=== PATIENT | female | born 1955 | race Caucasian/White ===

== ENCOUNTER 2023-02-07 02:42 | Outpatient (CLI) | payer MEDICARE, OTHER, SELFPAY | END 2023-02-07 02:43 | disposition home or self-care (01) | LOC: AMB 02-09 10:19 | PROVIDERS: PCP Internal Medicine; Visit Provider Emergency Medicine | DX: E11.65 Type 2 diabetes mellitus with hyperglycemia (principal) | CPT/HCPCS: A0425; A0426; A0428 ==

== ENCOUNTER 2023-06-22 09:57 | Outpatient (CLI) | payer MEDICARE, OTHER, SELFPAY | END 2023-06-22 09:58 | disposition home or self-care (01) | LOC: NFLDREF 09:58 | PROVIDERS: PCP Internal Medicine; Visit Provider Internal Medicine | DX: I10 Essential (primary) hypertension (principal); E04.1 Nontoxic single thyroid nodule | CPT/HCPCS: 80053 ==

== ENCOUNTER 2023-08-27 10:27 | Outpatient (CLI) | payer MEDICARE, OTHER, SELFPAY ==
--- NOTE | 2023-08-27 10:45 | CRLHL7_ITS ---
For Patients: As a result of the Century Cures Act, medical imaging exams and procedure reports are released immediately into your electronic medical record. You may view this report before your referring provider. If you have questions, please contact your health care provider. BILATERAL SCREENING MAMMOGRAM WITH COMPUTER-AIDED DETECTION AND TOMOSYNTHESIS TECHNIQUE: CC and MLO views were obtained. These mammographic images have been obtained using full-field digital technique. These mammographic images were interpreted with the benefit of computer-aided detection. Breast Tomosynthesis was used in this interpretation. COMPARISON FILM: 04/11/22. FINDINGS: There are scattered areas of fibroglandular density IMPRESSION: There is no radiographic evidence for malignancy. ASSESSMENT: BI-RADS Category 1: Negative RECOMMENDATION: Routine screening mammogram in 1 year. A lay language report of this examination will be provided to the patient. Andrea Mortensen M.D. Diagnostic Radiologist [email or web address] Transcribed: 5:48 p.[email or web address] fontana/Dictated by: Andrea Mortensen MD @ 08/30/2023 12:18:00 PM (Electronically Signed)
== END 2023-08-27 10:28 | disposition home or self-care (01) ==
LOC: MAMMO 10:28
PROVIDERS: PCP Internal Medicine; Visit Provider Internal Medicine
DX: Z12.31 Encounter for screening mammogram for malignant neoplasm of breast (principal)
CPT/HCPCS: 77063; 77067

== ENCOUNTER 2023-08-27 10:37 | Outpatient (CLI) | payer MEDICARE, OTHER, SELFPAY ==
--- NOTE | 2023-08-27 11:15 | CRLHL7_ITS ---
For Patients: As a result of the Century Cures Act, medical imaging exams and procedure reports are released immediately into your electronic medical record. You may view this report before your referring provider. If you have questions, please contact your health care provider. INDICATION: History of endometrial thickening COMPARISON: CT 02/06/2023 TECHNIQUE: 2D sin scale and color Doppler images were acquired of the pelvis using a transabdominal and transvaginal approach. FINDINGS: Sonographic images demonstrate a normal size and smooth outer contour of the uterus. Uterus measures 8.6 cm in length by 3.8 cm in AP diameter by 4.9 cm in transverse dimension. The myometrium has a heterogeneous echotexture. The endometrial lining appears normal and measures 4 mm in composite thickness. The ovaries are not visualized. There are no suspicious fluid collections within the cul-de-sac. IMPRESSION: Endometrial thickness 4 millimeters. No endometrial fluid. No uterine fibroid. Dictated by Andrea Mortensen MD @ 08/31/2023 6:23:41 AM (Electronically Signed)
== END 2023-08-27 10:38 | disposition home or self-care (01) ==
PROVIDERS: PCP Internal Medicine; Visit Provider Internal Medicine
DX: R93.89 Abnormal findings on diagnostic imaging of other specified body structures (principal)
CPT/HCPCS: 76830; 76856

== ENCOUNTER 2024-03-06 09:35 | Outpatient (CLI) | payer MEDICARE, OTHER, SELFPAY ==
--- OUTSIDE RECORDS SUMMARY | 2024-03-06 09:40 | XMS_ITS | Encounter Summary ---
Author Organization [facility] ([facility]) Address [address] [place] [address] Phone Care Team Providers Care Top Collar Maker Name Role Phone Rina Leblanc MD Primary Care Provider Felipe Nelson MD Unavailable [phone] Kayley Breaux DNP Unavailable [phone] Mariano Johansen MD Unavailable [phone] Beatriz Walker MD Unavailable [phone] Isaac Diehl MD Unavailable [phone] Shanell Palmer MD Unavailable [phone] Laine Daniels Unavailable Encounter Details Date Type Department Care Team (Late st Contact Info) Description 12/07/2016 Lab Requisition [facility] [address] [place] [address] Rina Leblanc MD [address] [place] [address] Hyperglycemia Social History Tobacco Use Types Packs/Day Years Used Date Smoking Tobacco: Former Smokeless Tobacco: Never Comments:uses nicotine gum Alcohol Use Standard Drinks/Week Comments Yes 0 (1 standard drink = 0.6 oz pure alcohol) 4 times per week (1 glass wine) Sex and Gender Information Value Date Recorded Sex Assigned at Not on file Gender Identity Not on file Sexual Orientation Not on file documented as of this encounter Functional Status Functional Status Response Date of Assess ment Is this person deaf or does he/she have serious difficulty hearing? No 09/24/2016 Is this person blind or does he/she have serious difficulty seeing even when wearing glasses? No 6 Does this person have seriou s difficulty walking or climbing stairs? No 09/24/2016 Does this person have difficulty dressing or bat [place]? No 09/24/2016 Because of a physical, menta l or emotional condition, does this person have difficulty doing errands alone such as visiting a doctor's office or shopping? No 09/24/2016 Cognitive Status Response Date of Assessm ent Because of a physical, menta l or emotional condition, does this person have serious difficulty concentrating, remembering, or making decisions? No 09/24/2016 documented as of this encounter Plan of Treatment Not on file documented as of this encounter Goals Goal Patient Goal Type Associated Problems Recent Progress Patient-Stated? 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) No Rina Leblanc MD documented as of this encounter Procedures Procedure Name Priority Date/Time Associated Diagnosis Comments KETONES, BLOOD TERRANCE 12/07/2016 10:29 AM CDT Hyperglycemia documented in this encounter Results * Ketones, blood (12/07/2016 10:29 AM CDT) Ketone Bodies, Serum <0.20 <=0.27 mmol/L 12/07/2016 11:51 AM CDT [facility] Blood specimen (specimen) 12/07/2016 10:29 AM CDT 12/07/2016 11:31 AM CDT Rina Leblanc MD LAB BLOOD ORDERABLES [facility] [address] [place] [address] documented in this encounter Visit Diagnoses Diagnosis Hyperglycemia Other abnormal glucose documented in this encounter Additional Health Concerns Infection Onset Date Last Indicated Resolved Time COVID-19 Pending 06/13/2020 06/14/2020 06/17/2020 8:01 AM CDT COVID-19 Pending 10/03/2020 10/03/202010/0410/04/2020 7:38 AM PARCEL POST CARRIER documented as of this encounter Care Teams Top Collar Maker Relationship Specialty Start Date End Date Rina Leblanc MD [address] [place] [address] PCP - General Internal Medicine 11/24/12 02/25/22 Felipe Nelson MD [address] [place] [address] Human Factors Specialist & Gynecology Obstetrics and Gynecology 09/10/17 11/10/20 Kayley Breaux ARNP, DNP [address] [facility] [address] [place] [address] Nurse Practitioner Nurse Practitioner wo Specialty 07/11/18 Mariano Johansen MD [address] [place] [address] Surgeon Orthopaedics 05/02/19 Beatriz Walker MD [address] [place] [address] Surgeon General Surgery 04/08/20 11/10/20 Isaac Diehl MD [address] [place] [address] Human Factors Specialist & Gynecology Obstetrics and Gynecology 11/11/20 11/16/21 Shanell Palmer MD [address] [place] [address] [address] [place] [address] Consulting Physician Gastroenterology 11/11/20 Laine Daniels ARNP [address] [facility] [address] [place] [address] Nurse Practitioner Gynecology 11/17/21 Dr Smith Optometry 10/28/18 Dr Boom Mccormack Dermatology 11/11/20 documented as of this encounter
--- OUTSIDE RECORDS SUMMARY | 2024-03-06 09:40 | XMS_ITS | Encounter Summary ---
Author Organization [facility] ([facility]) Address [address] [place] [address] Phone Care Team Providers Care Director Of Retail Name Role Phone Rina Leblanc MD Primary Care Provider Felipe Nelson MD Unavailable [phone] Kayley Breaux, [facility] Unavailable [phone] Mariano Johansen MD Unavailable [phone] Beatriz Walker MD Unavailable [phone] Isaac Diehl MD Unavailable [phone] Shanell Palmer MD Unavailable [phone] Laine Daniels Unavailable Reason for Visit * Reason Comments Other Encounter Details Date Type Department Care Team (Late st Contact Info) Description 09/11/2014 [facility]ill [facility] [address] [place] [address] Rina Leblanc MD [address] [place] [address] Type I (juvenile type) diabetes mellitus without mention of complication, not stated as uncontrolled (Primary Dx) Social History Tobacco Use Types Packs/Day Years Used Date Smoking Tobacco: Former Comments:uses nicotine gum Alcohol Use Standard Drinks/Week [...] does he/she have serious difficulty hearing? No 04/23/2014 Is this person blind or does he/she have serious difficulty seeing even when wearing glasses? No 4 Does this person have seriou s difficulty walking or climbing stairs? No 04/23/2014 Does this person have difficulty dressing or [place]? No 04/23/2014 Because of a physical, menta l or emotional condition, does this person have difficulty doing errands alone such as visiting a doctor's office or shopping? No 04/23/2014 documented as of this encounter Plan of Treatment Not on file documented as of this encounter Goals Goal Patient Goal Type Associated Problems Recent Progress Patient-Stated? 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 Rina Leblanc MD documented as of this encounter Visit Diagnoses Diagnosis Type I (juvenile type) diabetes mellitus without mention of complication, not stated as uncontrolled- Primary documented in this encounter Additional Health Concerns Infection Onset Date Last Indicated Resolved Time COVID-19 Pending 06/13/2020 06/14/2020 06/17/2020 8:01 AM CDT COVID-19 Pending 10/03/2020 10/03/2020 10/04/2020 7:38 AM GRAIN COMBINE DRIVER documented as of this encounter Care Teams Director Of Retail Relationship Specialty Start Date End Date Rina Leblanc MD [address] [place] [address] PCP - General Internal Medicine 11/24/12 02/25/22 Felipe Nelson MD [address] [place] [address] Counter Tacker & Gynecology Obstetrics and Gynecology 09/10/17 11/10/20 Kayley Breaux ARNP, FILOMENA [address] [facility] [address] [place] [address] Nurse Practitioner Nurse Practitioner wo Specialty 07/11/18 Mariano Johansen MD [address] [place] [address] Surgeon Orthopaedics 05/02/19 Beatriz Walker MD [address] [place] [address] Surgeon General Surgery 04/08/20 11/10/20 Isaac Diehl MD [address] [place] [address] Counter Tacker & Gynecology Obstetrics and Gynecology 11/11/20 11/16/21 Shanell Palmer MD [address] [place] [address] [address] [place] [address] Consulting Physician Gastroenterology 11/11/20 Laine Daniels, CONSULTING SYSTEMS ENGINEER [address] [facility] [address] [place] [address] Nurse Practitioner Gynecology 11/17/21 Dr Smith Optometry 10/28/18 Dr Boom Mccormack Dermatology 11/11/20 documented as of this encounter
--- OUTSIDE RECORDS SUMMARY | 2024-03-06 09:40 | XMS_ITS | Encounter Summary ---
Author Organization [facility] ([facility]) Address [address] [place] [address] Phone Care Team Providers Care Group Care Worker Name Role Phone Rina Leblanc MD Primary Care Provider [phone] Felipe Nelson MD Unavailable [phone] Kayley Breaux [facility] Unavailable [phone] Mariano Johansen MD Unavailable [phone] Beatriz Walker MD Unavailable [phone] Isaac Diehl MD Unavailable [phone] Shanell Palmer MD Unavailable [phone] Laine Daniels Unavailable Reason for Visit * Reason Comments Other Encounter Details Date Type Department Care Team (Late st Contact Info) Description 12/28/2017 Refill [facility] [address] [place] [address] Rina Leblanc MD [address] [place] [address] Benign essential HTN; Reactive depression (situational); Hyperlipidemia, unspecified hyperlipidemia type; Diabetes type 1, uncontrolled (HCC) Social History Tobacco Use Types Packs/Day Years Used Date Smoking Tobacco: Former Smokeless Tobacco: Never Comments:uses nicotine gum Alcohol Use Standard Drinks/Week Comments Yes 0 (1 standard drink = 0.6 oz pure alcohol) 2 beers 4 times per week on average Sex and Gender Information Value Date Recorded Sex Assigned at Not on file Gender Identity Not on file Sexual Orientation Not on file documented as of this encounter Functional Status Functional Status Response Date of Assess ment Is this person deaf or does he/she have serious difficulty hearing? No 12/23/2017 Is this person blind or does he/she have serious difficulty seeing even when wearing glasses? No 8 Does this person have seriou s difficulty walking or climbing stairs? No 12/23/2017 Does this person have difficulty dressing or bat [place]? No 12/23/2017 Because of a physical, menta l or emotional condition, does this person have difficulty doing errands alone such as visiting a doctor's office or shopping? No 12/23/2017 Cognitive Status Response Date of Assessm ent Because of a physical, menta l or emotional condition, does this person have serious difficulty concentrating, remembering, or making decisions? No 12/23/2017 documented as of this encounter Plan of Treatment Not on file documented as of this encounter Goals Goal Patient Goal Type Associated Problems Recent Progress Patient-Stated? 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 Rina Leblanc MD documented as of this encounter Visit Diagnoses Diagnosis Benign essential HTN Reactive depression (situational) Dysthymic disorder Hyperlipidemia, unspecified hyperlipidemia type Diabetes type 1, uncontrolled Type I (juvenile type) diabetes mellitus without mention of complication, uncontrolled documented in this encounter Additional Health Concerns Infection Onset Date Last Indicated Resolved Time COVID-19 Pending 06/13/2020 06/14/2020 06/17/2020 8:01 AM CDT COVID-19 Pending 10/03/2020 10/03/2020 10/04/2020 7:38 AM CAT DRIVER documented as of this encounter Care Teams Group Care Worker Relationship Specialty Start Date End Date Rina Leblacn MD [address] [place] [address] PCP - General Internal Medicine 11/24/12 02/25/22 Felipe Nelson MD [address] [place] [address] Management Engineer & Gynecology Obstetrics and Gynecology 09/10/17 11/10/20 Kayley Breaux ARNP, FILOMENA [address] [facility] [address] [place] [address] Nurse Practitioner Nurse Practitioner wo Specialty 07/11/18 Mariano Johansen MD [address] [place] [address] Surgeon Orthopaedics 05/02/19 Beatriz Walker MD [address] [place] [address] Surgeon General Surgery 04/08/20 11/10/20 Isaac Diehl MD [address] [place] [address] Management Engineer & Gynecology Obstetrics and Gynecology 11/11/20 11/16/21 Shanell Palmer MD [address] [place] [address] [address] [place] [address] Consulting Physician Gastroenterology 11/11/20 Laine Daniels ARNP [address] [place] [address] [address] [place] [address] Nurse Practitioner Gynecology 11/17/21 Dr Smith Optometry 10/28/18 Dr Boom Mccormack Dermatology 11/11/20 documented as of this encounter
--- OUTSIDE RECORDS SUMMARY | 2024-03-06 09:40 | XMS_ITS | Encounter Summary ---
Author Organization [facility] ([facility]) Address [address] [place] [address] Phone Care Team Providers Care Aircraft Fueler Name Role Phone Rina Leblanc MD Primary Care Provider Felipe Nelson MD Unavailable [phone] Kayley Breaux [facility] Unavailable [phone] Mariano Johansen MD Unavailable [phone] Beatriz Walker MD Unavailable [phone] Isaac Diehl MD Unavailable [phone] Shanell Palmer MD Unavailable [phone] Laine Daniels Unavailable Reason for Visit * Reason Comments Other Encounter Details Date Type Department Care Team (Late st Contact Info) Description 12/18/2016 Refill [facility] [address] [place], [place] [address] Rina Leblanc MD [address] [place] [address] Diabetes type 1, uncontrolled (HCC) Social History [...] activity Lifestyle On track( 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 Rina Leblanc MD documented as of this encounter Visit Diagnoses Diagnosis Diabetes type 1, uncontrolled Type I (juvenile type) diabetes mellitus without mention of complication, uncontrolled documented in this encounter Additional Health Concerns Infection Onset Date Last Indicated Resolved Time COVID-19 Pending 06/13/2020 06/14/2020 06/17/2020 8:01 AM CDT COVID-19 Pending 10/03/2020 10/03/2020 10/04/2020 7:38 AM CLOUD DEVELOPER documented as of this encounter Care Teams Aircraft Fueler Relationship Specialty Start Date End Date Rina Leblanc MD [address] [place] [address] PCP - General Internal Medicine 11/24/12 02/25/22 Felipe Nelson MD [address] [place] [address] Carbon Furnace Operator & Gynecology Obstetrics and Gynecology 09/10/17 11/10/20 Kayley Breaux ARNP, DNP [address] [facility] [address] [place] [address] Nurse Practitioner Nurse Practitioner wo Specialty 07/11/18 Mariano Johansen MD [address] [place] [address] Surgeon Orthopaedics 05/02/19 Beatriz Walker MD [address] [place] [address] Surgeon General Surgery 04/08/20 11/10/20 Isaac Diehl MD [address] [place] [address] Carbon Furnace Operator & Gynecology Obstetrics and Gynecology 11/11/20 11/16/21 Shanell Palmer MD [address] [place] [address] Consulting Physician Gastroenterology 11/11/20 Laine Daniels ARNP [address] [place] [address] Nurse Practitioner Gynecology 11/17/21 Dr Smith Optometry 10/28/18 Dr Boom Mccormack Dermatology 11/11/20 documented as of this encounter
--- OUTSIDE RECORDS SUMMARY | 2024-03-06 09:40 | XMS_ITS | Clinical Summary ---
Author Organization [facility] ([facility]) Address [address] [place] [address] Phone Care Team Providers Care Invas Tech Name Role Phone Kayley Breaux DNP Unavailable [phone] Mariano Johansen MD Unavailable [phone] Shanell Palmer MD Unavailable [phone] Laine Daniels Unavailable [phone] Allergies Active Allergy Reactions Criticality Noted Date Comments Penicillins Other (See Comments) 02/16/2013 Both sisters have anaphylatic reactions with PCN so was Never given it to see. Patient states has had Augmentin in the past Sulfa (Sulfonamide Antibiotics) Hives Medium 02/16/2013 Medications Medication Sig Dispensed Refills Start Date End Date Status GLUCAGON 1 mg injection USE DIRECTED IF BLOOD SUGAR SYMPTOMATICALLY TOO LOW. 1 each 3 10/26/19 14 Active desoximetasone (TOPICORT) 0.25 % cream Apply 1 application topically as needed. 0 Active LORazepam (ATIVAN) 0.5 MG tabletIndications: Anxiety Take 1-2 tablets (0.5-1 mg total) by mouth daily as needed. (prior to flight) 10 tablet 0 09/07/20 16 Active insulin glargine (LANTUS SOLOSTAR) 100 unit/mL (3 mL) InPnIndications:Un controlled type 1 diabetes mellitus without complication 20 units daily 15 mL 5 12/08/19 17 Active Additional Information Patient taking differently: (No instructions reported), Indications: only uses with pump failure - not daily, Reported on 01/13/2022 test strips (KETONE CARE) StrpIndications:Un controlled type 1 diabetes mellitus without complication Use as needed when BS elevated. 50 strip 2 12/08/19 Active ESTROGEN,CON/M-PRO GEST ACET (PREMPRO ORAL) Take 1 tablet by mouth every morning. 0.45-1.5 mg 0 Active INFUSION SET 43 9MM Infusion SetIndications:Unc ontrolled type 1 diabetes mellitus without complication 1 each by Miscellaneous route every other day. Auto soft 90 43 9 ml 45 each 3 02/17/20 Active T:SLIM CartridgeIndicatio ns:Uncontrolled type 1 diabetes mellitus without complication Inject 1 each under the skin every other day. 45 each 3 02/17/20 Active betamethasone dipropionate (DIPROLENE) 0.05 % ointment Apply topically as needed. 0 01/14/20 Active multivitamin capsule Take 1 capsule by mouth every morning. 0 Active calcium carbonate/vitamin D3 (CALCIUM 600 + D,3, ORAL) Take 1 capsule by mouth every morning. 0 Active nicotine polacrilex (NICORETTE) 4 MG gum Take 4 mg by mouth as needed for Smoking cessation ((uses 6 pieces per day on average)). 0 Active lancets (MICROLET LANCET) MiscIndications:Ty pe 1 diabetes mellitus without complication (HCC) MICROLET LANCETS. USE 4X DAILY. 400 each 3 09/13/20 Active aspirin 81 MG EC tablet Take 81 mg by mouth every morning. 0 Active simethicone (MYLICON) 125 MG chewable tabletIndications: Belching Take 1 tablet (125 mg total) by mouth every 6 (six) hours as needed. 30 tablet 0 11/17/19 Active valsartan (DIOVAN) 80 MG tabletIndications: Benign essential HTN TAKE 1 TABLET EVERY MORNING 90 tablet 1 01/29/20 Active FreeStyle Lite Test StripsIndications: Type 1 diabetes mellitus without complication (HCC) TEST 5 TIMES DAILY DIRECTED 450 strip 3 03/18/20 Active atorvastatin (LIPITOR) 20 MG tabletIndications: Hyperlipidemia, unspecified hyperlipidemia type TAKE 1 TABLET DAILY 90 tablet 1 03/19/20 Active NOVOLOG U-100 INSULIN ASPART 100 unit/mL vialIndications:Ty pe 1 diabetes mellitus without complication (HCC) INJECT 70 UNITS UNDER THE SKIN DAILY VIA PUMP 60 mL 1 05/14/20 22 Active buPROPion (WELLBUTRIN XL) 300 MG 24 hr tabletIndications: Recurrent major depressive disorder, in remission (HCC) TAKE 1 TABLET DAILY 90 tablet 1 06/22/20 22 Active sertraline (ZOLOFT) 50 MG tabletIndications: Reactive depression (situational) TAKE 1 TABLET DAILY 90 tablet 1 02/07/20 24 Active sertraline (ZOLOFT) 50 MG tabletIndications: Reactive depression (situational) TAKE 1 TABLET DAILY 90 tablet 1 11/02/19 23 024 Discontinued Active Problems Problem Noted Date Diagnosed Date Abdominal wall pain in left lower quadrant 11/14 Essential hypertension 11/11/2020 Gastroesophageal reflux dise ase, unspecified whether esophagitis present 11/11/2020 PMB (postmenopausal bleeding) 10/10/2020 Endometrial polyp 10/10/2020 Rectal polyp 06/21/2020 Status post left rotator cuff repair 07/10/2019 Other shoulder lesions, left shoulder 07/07/2019 Diabetes type 1, uncontrolled 12/19/2008 Recurrent major depressive disorder, in remissio n 12/19/2008 Mixed hyperlipidemia Encounters Date Type Department Care Team Description 02/07/2024 [place] [address] Rina Leblanc MD Reactive depression (situational) from Last 3 Months Immunizations Name Administration Dates Next Due Hepatitis A vaccine, adult 07/29/2005 Hepatitis B vaccine, adult 05/24/2006,02/11/2006 ,12/08/2005 Hepatitis B vaccine, unspecified 12/14/2006,09/27,07/12/2006 Influenza (Quadrivalent) W Preservative 07/14/2017,07/08/2016,07/10/2015,06/2907/27/2015 Influenza TIV (IM) 07/08/2011 Influenza virus, whole 08/11/2002 Influenza, Quadrivalent (PF) 07/27/2014 Influenza, Quadrivalent, wit h preservative 08/10/2019 Influenza, Recombinant, Quad rivalent (PF) 07/11/2018 Influenza, Seasonal 08/04/2005 Influenza, high dose quadriv alent (PF) 06/23/2021 Influenza, high dose seasonal (PF) 08/14/2021, Moderna SARS-CoV-2 Monovalen t Booster Vaccine 02/10/2022 Pfizer SARS-CoV-2 Monovalent Vaccine 07/08/2021, 12/07/2020,11/16/2020 Pneumococcal Polysaccharide vaccine, 23 valent 11/07/2019,08/11/2002 Td 09/27/2005 Td (adult), 2 Lf tetanus kirk xoid, adsorbed (PF) 07/29/2005 Tdap 06/27/2012 Zoster Vaccine Recombinant 02/16/2020,11/23/2019 Family History Medical History Relation Name Comments No Known Problems Daughter Depression Father Diabetes Father Glaucoma Father Macular degeneration Father Stroke Father Breast cancer Maternal Aunt Breast cancer Maternal Grandmother Thyroid disease Mother No Known Problems Other No Known Problems Paternal Aunt No Known Problems Paternal Grandmother Breast cancer Sister 1 Heart disease Sister 2 SCAD MS (spont aneous coronary artery dissection) Diabetes Son 1 type 1 No Known Problems Son 2 BRCA 1/2 Neg Hx Ovarian cancer Neg Hx Relation Name Status Comments Daughter Father (Age 82) h/o blood clots (not in legs; no known PEs) Maternal Aunt Maternal Grandmother Mother (Age 101) proabable aspiration Other Paternal Aunt Paternal Grandmother Sister 1 Alive crohn's disease Sister 2 Alive gluten intolera nce Son 1 Alive Son 2 Alive Social History Tobacco Use Types Packs/Day Years Used Date Smoking Tobacco: Former Cigarettes 0.5 15 Q uit: 2000 Smokeless Tobacco: Never Tobacco Cessation:Counseling Given: Yes Comments:uses nicotine gum Alcohol Use Standard Drinks/Week Comments Yes 0 (1 standard drink = 0.6 oz pur e alcohol) at least 2 beers per day PHQ-2 Answer Date Recorded PHQ-2 Score 2 11/17/2021 Sex and Gender Information Value Date Recorded Sex Assigned at Not on file Gender Identity Not on file Sexual Orientation Not on file Last Filed Vital Signs Vital Sign Reading Time Taken Comments Blood Pressure 120/70 02/20/2022 8:45 AM CDT Pulse 71 01/13/2022 10:31 AM CDT Temperature 36.1 ??C (97 ??F) 01/13/2022 10:31 AM CDT Respiratory Rate 14 02/20/2022 8:45 AM CDT Oxygen Saturation 97% 01/13/2022 10:31 AM CDT Inhaled Oxygen Concentration - - Weight 70.5 kg (155 lb 6.4 oz) 02/20/2022 8:45 A M CDT Height 157.5 cm (5' 2) 02/20/2022 8:45 AM CDT Body Mass Index 28.42 02/20/2022 8:45 AM CDT Plan of Treatment Health Maintenance Due Date Last Done Comments RSV 60+ (1 - 1-dose 60+ series) 2015 GLAUCOMA SCREENING 67+ YR 2022 DEXA SCAN 03/06/2022 03/06/2019, 02/16/2014 MAMMOGRAM 03/18/2022 03/18/2021, 02/25, 03/06/2019, Additional history exists DTAP/TDAP/TD VACCINES (2 - Td or Tdap) 06/27/2022 06/27/2012, 06/27/2012, 09/27/2005, Additional history exists FOOT EXAM 02/20/2023 02/20/2022, 10/29, 08/20/2021, Additional history exists COVID VACCINES (2022- season) 2023 08/08/2022, 02/10/2022, 07/08/2021, Additional history exists OPHTHALMOLOGY EXAM 02/18/2024 02/17/2022, 0 11/27/2020, 10/02/2019, Additional history exists COLONOSCOPY 06/21/2025 06/21/2020, 05/29, 01/08/2015, Additional history exists HEPATITIS A VACCINES Aged Out 07/29/2005 No long er eligible based on patient's age to complete this topic HEPATITIS B VACCINES Completed 12/14/2006, 10/06/2006, 07/12/2006, Additional history exists ZOSTER VACCINES Completed 02/16/2020, 11/23/2019 PNEUMOCOCCAL (65+) VACCINE Completed 08/07, 11/07/2019, 08/11/2002 INFLUENZA VACCINE Completed 06/22/2023, , 06/23/2021, Additional history exists HPV VACCINES Aged Out No longer eligi ble based on patient's age to complete this topic MENINGOCOCCAL VACCINE Aged Out No sara reza eligible based on patient's age to complete this topic POLIO VACCINES Aged Out No longer garret barbara based on patient's age to complete this topic Goals Goal Patient Goal Type Associated Problems Recent Progress Patient-Stated? 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 9:52 AM CAR BLOCKER) Rina Harrell MD Medical Devices Implanted Type Area Reel Cutter Device Identifier Shelf Expiration Date Model / Serial / Lot [place] [employer] 2.9mm Sz 2 - [id number] Implanted:Qty: 1 on 07/10/2019 by Mariano Johansen MD at [facility] Implant Left: Shoulder SHAMEKA BIOMET [id number] / / [id number] [place] Juggerknot 2.9mm Sz 2 - [id number] Implanted:Qty: 1 on 07/10/2019 by Mariano Johansen MD at [facility] Implant Left: Shoulder SHAMEKA BIOMET [id number] / / [id number] Care Teams Invas Tech Relationship Specialty Start Date End Date Kayley Breaux, AB, DNP [address] [facility] [address] [place] [address] Nurse Practitioner Nurse Practitioner wo Specialty 07/11/18 Mariano Johansen MD [address] [place] [address] Surgeon Orthopaedics 05/02/19 Shanell Palmer MD [address] [place] [address] Consulting Physician Gastroenterology 11/11/20 Laine Daniels ARNP [address] [place] [address] Nurse Practitioner Gynecology 11/17/21 Dr Smith Optometry 10/28/18 Dr Boom Mccormack Dermatology 11/11/20
--- OUTSIDE RECORDS SUMMARY | 2024-03-06 09:40 | XMS_ITS | Encounter Summary ---
Author Organization [facility] ([facility]) Address [address] [place] [address] Phone Care Team Providers Care Games Dealer Name Role Phone Rina Leblanc MD Primary Care Provider Felipe Nelson MD Unavailable [phone] Kayley Breaux, [facility] Unavailable [phone] Mariano Johansen MD Unavailable [phone] Beatriz Walker MD Unavailable [phone] Isaac Diehl MD Unavailable [phone] Shanell Palmer MD Unavailable [phone] Laine Daniels Unavailable [phone] Reason for Visit * Reason Comments Other Encounter Details Date Type Department Care Team (Late st Contact Info) Description 02/11/2016 Refill [facility] [address], [place] [id number] Rina Leblanc MD [address] [place] [address] Hyperlipidemia (Primary Dx) Social History Tobacco Use Types [...] does he/she have serious difficulty hearing? No 11/20/2015 Is this person blind or does he/she have serious difficulty seeing even when wearing glasses? No 6 Does this person have seriou s difficulty walking or climbing stairs? No 11/20/2015 Does this person have difficulty dressing or [place]? No 11/20/2015 Because of a physical, menta l or emotional condition, does this person have difficulty doing errands alone such as visiting a doctor's office or shopping? No 11/20/2015 Cognitive Status Response Date of Assessm ent Because of a physical, menta l or emotional condition, does this person have serious difficulty concentrating, remembering, or making decisions? No 11/20/2015 documented as of this encounter Plan of Treatment Not on file documented as of this encounter Goals Goal Patient Goal Type Associated Problems Recent Progress Patient-Stated? 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 9:52 AM PARI MUTUEL TICKET SELLER) No Rina Leblanc MD documented as of this encounter Visit Diagnoses Diagnosis Hyperlipidemia- Primary Other and unspecified hyperlipidemia documented in this encounter Additional Health Concerns Infection Onset Date Last Indicated Resolved Time COVID-19 Pending 06/13/2020 06/14/2020 06/17/2020 8:01 AM CDT COVID-19 Pending 10/03/2020 10/03/2020 10/04/2020 7:38 AM PARI MUTUEL TICKET SELLER documented as of this encounter Care Teams Games Dealer Relationship Specialty Start Date End Date Rnia Leblanc MD [address] [place] [address] PCP - General Internal Medicine 11/24/12 02/25/22 Felipe Nelson MD [address] [place] [address] Registered Midwife & Gynecology Obstetrics and Gynecology 09/10/17 11/10/20 Kayley Breaux ARNP, DNP [address] [facility] [address] [place] [address] Nurse Practitioner Nurse Practitioner wo Specialty 07/11/18 Mariano Johansen MD [address] [place] [address] Surgeon Orthopaedics 05/02/19 Beatriz Walker MD [address] [place] [address] Surgeon General Surgery 04/08/20 11/10/20 Isaac Diehl MD [address] [place] [address] Registered Midwife & Gynecology Obstetrics and Gynecology 11/11/20 11/16/21 Shanell Palmer MD [address] [place] [address] [address] [place] [address] Consulting Physician Gastroenterology 11/11/20 Laine Daniels, INDUSTRIAL RELATIONS DIRECTOR [address] [facility] [address] [place] [address] Nurse Practitioner Gynecology 11/17/21 Dr Smith Optometry 10/28/18 Dr Boom Mccormack Dermatology 11/11/20 documented as of this encounter
--- OUTSIDE RECORDS SUMMARY | 2024-03-06 09:40 | XMS_ITS | Encounter Summary ---
Author Organization [facility] ([facility]) Address [address] [place] [address] Phone Care Team Providers Care Pin Chaser Name Role Phone Rina Leblanc MD Primary Care Provider Felipe Nelson MD Unavailable [phone] Kayley Breaux [facility] Unavailable [phone] Mariano Johansen MD Unavailable [phone] Beatriz Walker MD Unavailable [phone] Isaac Diehl MD Unavailable [phone] Shanell Palmer MD Unavailable [phone] Laine Daniels Unavailable Reason for Visit * Reason Comments Other Encounter Details Date Type Department Care Team (Late st Contact Info) Description 10/21/2015 Refill [facility] [address], [place] [address] Rina Leblanc MD [address] [place] [address] DM w/ coma type I, uncontrolled (HCC) (Primary Dx) Social History Tobacco Use Types [...] does he/she have serious difficulty hearing? No 08/16/2015 Is this person blind or does he/she have serious difficulty seeing even when wearing glasses? No 5 Does this person have seriou s difficulty walking or climbing stairs? No 08/16/2015 Does this person have difficulty dressing or [place]? No 08/16/2015 Because of a physical, menta l or emotional condition, does this person have difficulty doing errands alone such as visiting a doctor's office or shopping? No 08/16/2015 Cognitive Status Response Date of Assessm ent Because of a physical, menta l or emotional condition, does this person have serious difficulty concentrating, remembering, or making decisions? No 08/16/2015 documented as of this encounter Plan of Treatment Not on file documented as of this encounter Goals Goal Patient Goal Type Associated Problems Recent Progress Patient-Stated? 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 9:52 AM ORACLE FINANCIALS CONSULTANT) No Rina Leblanc MD documented as of this encounter Visit Diagnoses Diagnosis DM w/ coma type I, uncontrolled- Primary Type I (juvenile type) diabetes mellitus with other coma, uncontrolled documented in this encounter Additional Health Concerns Infection Onset Date Last Indicated Resolved Time COVID-19 Pending 06/13/2020 06/14/2020 06/17/2020 8:01 AM CDT COVID-19 Pending 10/03/2020 10/03/2020 10/04/2020 7:38 AM ORACLE FINANCIALS CONSULTANT documented as of this encounter Care Teams Pin Chaser Relationship Specialty Start Date End Date Rina Leblanc MD [address] [place] [address] PCP - General Internal Medicine 11/24/12 02/25/22 Felipe Nelson MD [address] [place] [address] Tool Designer & Gynecology Obstetrics and Gynecology 09/10/17 11/10/20 Kayley Breaux ARNP, FILOMENA [address] [facility] [address] [place] [address] Nurse Practitioner Nurse Practitioner wo Specialty 07/11/18 Mariano Johansen MD [address] [place] [address] Surgeon Orthopaedics 05/02/19 Beatriz Walker MD [address] [place] [address] Surgeon General Surgery 04/08/20 11/10/20 Isaac Diehl MD [address] [place] [address] Tool Designer & Gynecology Obstetrics and Gynecology 11/11/20 11/16/21 Shanell Palmer MD [address] [place] [address] Consulting Physician Gastroenterology 11/11/20 Laine Daniels ARNP [address] [place] [address] Nurse Practitioner Gynecology 11/17/21 Dr Smith Optometry 10/28/18 Dr Boom Mccormack Dermatology 11/11/20 documented as of this encounter
--- OUTSIDE RECORDS SUMMARY | 2024-03-06 09:40 | XMS_ITS | Encounter Summary ---
Author Organization [facility] ([facility]) Address [address] [place] [address] Phone Care Team Providers Care Floor Runner Name Role Phone Rina Leblanc MD Primary Care Provider [phone] Felipe Nelson MD Unavailable [phone] Kayley Breaux [facility] Unavailable [phone] Mariano Johansen MD Unavailable [phone] Beatriz Walker MD Unavailable [phone] Isaac Diehl MD Unavailable [phone] Shanell Palmer MD Unavailable [phone] Laine Daniels Unavailable Reason for Visit * Reason Comments Other Encounter Details Date Type Department Care Team (Late st Contact Info) Description 01/28/2014 Refill [facility] [address] [place], [place] [address] Rina Leblanc MD [address] [place] [address] Social History Tobacco Use Types Packs/Day Years [...] on file documented as of this encounter Plan of Treatment Not on file documented as of this encounter Goals Goal Patient Goal Type Associated Problems Recent Progress Patient-Stated? 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 9:52 AM BULL LADLE TENDER) No Rina Leblanc MD documented as of this encounter Visit Diagnoses Not on filedocumented in this encounter Additional Health Concerns Infection Onset Date Last Indicated Resolved Time COVID-19 Pending 06/13/2020 06/14/2020 06/17/2020 8:01 AM CDT COVID-19 Pending 10/03/2020 10/03/2020 10/04/2020 7:38 AM BULL LADLE TENDER documented as of this encounter Care Teams Floor Runner Relationship Specialty Start Date End Date Rina Leblanc MD [address] [place] [address] PCP - General Internal Medicine 11/24/12 02/25/22 Felipe Nelson MD [address] [place] [address] [address] [place] [address] Cross Cut Sawyer & Gynecology Obstetrics and Gynecology 09/10/17 11/10/20 Kayley Breaux, AB, [facility] [address] [facility] [address] [place] [address] Nurse Practitioner Nurse Practitioner wo Specialty 07/11/18 Mariano Johansen MD [address] [place] [address] Surgeon Orthopaedics 05/02/19 Beatriz Walker MD [address] [place] [address] Surgeon General Surgery 04/08/20 11/10/20 Isaac Dihel MD [address] [place] [address] Cross Cut Sawyer & Gynecology Obstetrics and Gynecology 11/11/20 11/16/21 Shanell Palmer MD [address] [place] [address] Consulting Physician Gastroenterology 11/11/20 Laine Daniels, [facility] [address] [place] [address] Nurse Practitioner Gynecology 11/17/21 Dr Smith Optometry 10/28/18 Dr Boom Mccormack Dermatology 11/11/20 documented as of this encounter
--- OUTSIDE RECORDS SUMMARY | 2024-03-06 09:40 | XMS_ITS | Encounter Summary ---
Author Organization [facility] ([facility]) Address [address] [place] [address] Phone Care Team Providers Care Test Car Driver Name Role Phone Rina Leblanc MD Primary Care Provider [phone] Felipe Nelson MD Unavailable [phone] Kayley Breaux [facility] Unavailable [phone] Mariano Johansen MD Unavailable [phone] Beatriz Walker MD Unavailable [phone] Isaac Diehl MD Unavailable [phone] Shanell Palmer MD Unavailable [phone] Laine Daniels Unavailable [phone] Reason for Visit * Reason Comments Other Encounter Details Date Type Department Care Team (Late st Contact Info) Description 12/14/2016 Refill [facility] [address] [place] [address] Rina Leblanc MD [address] [place] [address] Reactive depression (situational) Social History Tobacco Use Types Packs/Day Years [...] activity Lifestyle On track( 022 9:52 AM PORCELAIN ENAMELER) No Rina Leblanc MD documented as of this encounter Visit Diagnoses Diagnosis Reactive depression (situational) Dysthymic disorder documented in this encounter Additional Health Concerns Infection Onset Date Last Indicated Resolved Time COVID-19 Pending 06/13/2020 06/14/2020 06/17/2020 8:01 AM CDT COVID-19 Pending 10/03/2020 10/03/2020 10/04/2020 7:38 AM PORCELAIN ENAMELER documented as of this encounter Care Teams Test Car Driver Relationship Specialty Start Date End Date Rina Leblanc MD [address] [place] [address] PCP - General Internal Medicine 11/24/12 02/25/22 Felipe Nelson MD [address] [place] [address] Geoscience Specialist & Gynecology Obstetrics and Gynecology 09/10/17 11/10/20 Kayley Breaux ARNP, DNP [address] [facility] [address] [place] [address] Nurse Practitioner Nurse Practitioner wo Specialty 07/11/18 Mariano Johansen MD [address] [place] [address] Surgeon Orthopaedics 05/02/19 Beatriz Walker MD [address] [place] [address] Surgeon General Surgery 04/08/20 11/10/20 Isaac Diehl MD [address] [place] [address] Geoscience Specialist & Gynecology Obstetrics and Gynecology 11/11/20 11/16/21 Shanell Palmer MD [address] [place] [address] Consulting Physician Gastroenterology 11/11/20 Laine Daniels ARNP [address] [place] [address] Nurse Practitioner Gynecology 11/17/21 Dr Smith Optometry 10/28/18 Dr Boom Mccormack Dermatology 11/11/20 documented as of this encounter
--- OUTSIDE RECORDS SUMMARY | 2024-03-06 09:40 | XMS_ITS | Encounter Summary ---
Author Organization [facility] ([facility]) Address [address] [place] [address] Phone Care Team Providers Care Production Reproduction Manager Name Role Phone Rina Leblanc MD Primary Care Provider [phone] Felipe Nelson MD Unavailable [phone] Kayley Breaux [facility] Unavailable [phone] Mariano Johansen MD Unavailable [phone] Beatriz Walker MD Unavailable [phone] Isaac Diehl MD Unavailable [phone] Shanell Palmer MD Unavailable [phone] Laine Daniels Unavailable [phone] Reason for Visit * Reason Comments Other Encounter Details Date Type Department Care Team (Late st Contact Info) Description 05/23/2018 Refill [facility]esthesiologist [facility] [address], [place] [address] Rina Leblanc MD [address] [place] [address] Hyperlipidemia, unspecified hyperlipidemia type; Reactive depression (situational); Benign essential HTN Social History Tobacco Use Types Packs/Day Years [...] activity Lifestyle On track( 022 9:52 AM SECTIONIZER) No Rina Leblanc MD documented as of this encounter Visit Diagnoses Diagnosis Hyperlipidemia, unspecified hyperlipidemia type Reactive depression (situational) Dysthymic disorder Benign essential HTN documented in this encounter Additional Health Concerns Infection Onset Date Last Indicated Resolved Time COVID-19 Pending 06/13/2020 06/14/2020 06/17/2020 8:01 AM CDT COVID-19 Pending 10/03/2020 10/03/2020 10/04/2020 7:38 AM SECTIONIZER documented as of this encounter Care Teams Production Reproduction Manager Relationship Specialty Start Date End Date Rina Leblanc MD [address] [place] [address] PCP - General Internal Medicine 11/24/12 02/25/22 Felipe Nelson MD [address] [place] [address] Sales Developer & Gynecology Obstetrics and Gynecology 09/10/17 11/10/20 Kayley Breaux ARNP, FILOMENA [address] [facility] [address] [place] [address] Nurse Practitioner Nurse Practitioner wo Specialty 07/11/18 Mariano Johansen MD [address] [place] [address] Surgeon Orthopaedics 05/02/19 Beatriz Walker MD [address] [place] [address] Surgeon General Surgery 04/08/20 11/10/20 Isaac Diehl MD [address] [place] [address] Sales Developer & Gynecology Obstetrics and Gynecology 11/11/20 11/16/21 Shanell Palmer MD [address] [place] [address] Consulting Physician Gastroenterology 11/11/20 Laine Daniels ARNP [address] [place] [address] Nurse Practitioner Gynecology 11/17/21 Dr Smith Optometry 10/28/18 Dr Boom Mccormack Dermatology 11/11/20 documented as of this encounter
--- OUTSIDE RECORDS SUMMARY | 2024-03-06 09:40 | XMS_ITS | Clinical Summary ---
Author Organization [facility] Address [place], [place] [address] Care Team Providers Care Kitchen Mechanic Name Role Phone Unavailable Primary Care Provider Unavailabl e Allergies Active Allergy Reactions Criticality Noted Date Comments Penicillins Hives High 02/09/2023 Sulfa (Sulfonamide Antibiotics) *Unknown Unknown 02/09/2023 known family reaction Medications Medication Sig Dispensed Refills Start Date End Date Status sertraline (ZOLOFT) 50 mg tablet Take 50 mg by mouth once daily. Active conjugated estrogens-medroxyPR OGESTERone, 0.45-1.5 mg, (Prempro 0.45 mg-1.5 mg) tablet Take 1 Tablet by mouth once daily. Active hydroCHLOROthiazide 12.5 mg tablet Take 12.5 mg by mouth every morning. Active valsartan (DIOVAN) 80 mg tablet Take 80 mg by mouth every morning. Active insulin aspart U-100 (NovoLOG U-100 Insulin aspart) 100 unit/mL injection Inject 70 units subcutaneous once daily. via pump Active atorvastatin (LIPITOR) 20 mg tablet Take 20 mg by mouth once daily. Active buPROPion (WELLBUTRIN XL) 300 mg Extended-Release tablet Take 300 mg by mouth every morning. Active amLODIPine (NORVASC) 5 mg tablet Take 5 mg by mouth once daily. Active loratadine (Claritin) 10 mg tablet Take 10 mg by mouth once daily if needed for Allergy Symptoms. Active multivitamin (MVI) tablet Take 1 Tablet by mouth once daily. Active calcium with vitamin D3 (OS-ANGEL LUIS 500 + D) tablet Take 1 Tablet by mouth once daily. Active propylene glycol/peg 400/PF (SYSTANE, PF, OPHT) Place 1 Drop into both eyes 4 times daily if needed. Active brimonidine tartrate (LUMIFY OPHT) Place 1 Drop into both eyes once daily if needed. only on hot days Active ibuprofen (ADVIL; MOTRIN) 200 mg tablet Take 200-400 mg by mouth once daily if needed. Active desoximetasone 0.25% topical (TOPICORT) 0.25 % ointment Apply topically to the affected area Active Active Problems Problem Noted Date Diagnosed Date DKA (diabetic ketoacidosis) 02/06/2023 Social History Tobacco Use Types Packs/Day Years Used Date Smoking Tobacco: Never Assessed Social Connections Answer Date Recorded Frequency of Communication with Friends and Fami ly Not on file 02/07/2023 Sex and Gender Information Value Date Recorded Sex Assigned at Not on file Gender Identity Not on file Sexual Orientation Not on file Obstetrics History Last Filed Vital Signs Vital Sign Reading Time Taken Comments Blood Pressure 132/64 02/09/2023 4:00 PM CDT Pulse 70 02/09/2023 4:00 PM CDT Temperature 37.4 ??C (99.3 ??F) 02/09/2023 4:00 PM CD T Respiratory Rate 20 02/09/2023 4:00 PM CDT Oxygen Saturation 95% 02/09/2023 4:00 PM CDT Inhaled Oxygen Concentration - - Weight 70.6 kg (155 lb 9.6 oz) 02/09/2023 5:00 A M CDT Height 157.5 cm (5' 2) 02/07/2023 3:00 AM CDT Body Mass Index 28.46 02/07/2023 3:00 AM CDT Plan of Treatment Not on file Advance Directives * Full Code (Latest Code Status on File) Date Activated Date Inactivated Comments 02/07/2023 4:00 AM 02/09/2023 7:36 PM Question Answer Comments Code Status Discussion: Reviewed Preferences
--- OUTSIDE RECORDS SUMMARY | 2024-03-06 09:40 | XMS_ITS | Clinical Summary ---
Author Organization [facility] Address [address] [place] [address] Care Team Providers Care Brim Stitcher Name Role Phone Stephanie Groves MD Primary Care Provider [phone] Stephanie Groves MD Unavailable Radha Wong RN Unavailable [phone] Reed Flores DO Unavailable Allergies Active Allergy Reactions Criticality Noted Date Comments Penicillins 04/06/2022 Sulfa Antibiotics Hives 04/06/2022 Medications Medication Sig Dispensed Refills Start Date End Date Status buPROPion (WELLBUTRIN XL) 300 MG 24 hr tablet Take 300 mg by mouth every morning 05/12/2021 Active desoximetasone (TOPICORT) 0.25 % OINT ointment Apply topically 2 times daily as needed 01/12/2022 Active insulin aspart (NOVOLOG VIAL) 100 UNITS/ML vial Insulin pump 03/13/2021 Active valsartan (DIOVAN) 80 MG tablet Take 80 mg by mouth daily 07/25/2021 Active sertraline (ZOLOFT) 50 MG tablet Take 50 mg by mouth daily 01/30/2021 Active aspirin (ASA) 81 MG EC tablet Take 81 mg by mouth Active Calcium Carb-Cholecalciferol (CALCIUM/VITAMIN D) 600-400 MG-UNIT TABS Take 1 capsule by mouth daily Active multivitamin, therapeutic (THERA-VIT) TABS tablet Take 1 tablet by mouth daily Active nicotine (NICORETTE) [address] 2 mg inside cheek every hour as needed for smoking cessation Active Continuous Blood Gluc Transmit (DEXCOM G6 TRANSMITTER) MISMadidications:Type 1 diabetes mellitus without complication (H) 1 each continuous 2 each 1 05/25/2022 Active Continuous Blood Gluc Sensor (DEXCOM G6 SENSOR) MISCIndications:Type 1 diabetes mellitus without complication (H) 1 each continuous Change every 10 days 9 each 3 05/25/2022 Active Continuous Blood Gluc Co Op (DEXCOM G6 PRE SALES TECHNICAL ENGINEER) DEVIIndications:Type 1 diabetes mellitus without complication (H) 1 each continuous 1 each 05/25/2022 Active blood glucose (NO BRAND SPECIFIED) lancing deviceIndications:Ty pe 1 diabetes mellitus without complication (H) Device to be used with lancets. Patient will let you know what brand she currently uses 1 each 05/27/2022 Active INSULIN PUMP - OUTPATIENTIndication s:Type 1 diabetes mellitus without complication (H) Date last updated: 07/01/22 Tandem- control IQ time basal C/R correct target 12am 0.50 11 60 110 3am 0.55 11 60 110 5am 0.55 11 45 110 8am 0.55 7.8 45 110 1pm 0.65 7.8 50 110 5pm 0.65 6.5 50 110 10pm 0.475 9.0 60 110 07/01/2022 Active estrogen conj-medroxyPROGESTE Aravind (PREMPRO) 0.45-1.5 MG tabletIndications:Po st-menopausal Take 1 tablet by mouth daily 90 tablet 1 11/26/2022 Active atorvastatin (LIPITOR) 20 MG tabletIndications:Hy perlipidemia LDL goal <100 Take 1 tablet (20 mg) by mouth daily 90 tablet 1 11/26/2022 Active Active Problems Problem Noted Date Diagnosed Date Type 1 diabetes mellitus without complication Diabetes mellitus, type 2 08/07/2022 Esophageal dysmotility 06/23/2022 Belching 06/23/2022 Resolved Problems Problem Noted Date Diagnosed Date Resolved Date Uncontrolled type 1 diabetes mellitus with hyperglycemia 08/07/2022 08/07/2022 Immunizations Name Administration Dates Next Due COVID-19 Bivalent 12+ (Pfizer) 08/08/2022 COVID-19 MONOVALENT 12+ (Pfizer) 07/08/2021,11/25,11/16/2020 HepB, Unspecified 12/14/2006,10/06/2006,07/12/20 06 Hepatitis A (ADULT 19+) 07/29/2005 Hepatitis B, Adult 05/24/2006,02/11/2006, 006 Influenza (High Dose) 3 diallo nt vaccine 08/14/2021,06/24/2020 Influenza (IIV3) PF 08/04/2005 Influenza (intradermal) 07/08/2011 Influenza Vaccine 18-64 (Flublok) 07/11/2018 Influenza Vaccine 65+ (Fluzone HD) 06/08/2022, Influenza Vaccine >6 months,quad, PF 07/27/2014 Influenza Vaccine, 6+MO IM (QUADRIVALENT W/PRESERVATIVES) 08/10/2019,07/14/2017,07/08/2016,2014,07/27/2014 Influenza, Whole Virus 08/11/2002 Pneumococcal 20 valent Conju gate (Prevnar 20) 08/07/2022 Pneumococcal 23 valent 11/07/2019,08/11/2002 Td (Adult), Adsorbed 07/29/2005 Td,adult,historic,unspecified 09/27/2005 Tdap (Adult) Unspecified Formulation 06/27/2012 Zoster recombinant adjuvante d (SHINGRIX) 02/16/2020,11/23/2019 Family History Medical History Relation Comments Diabetes Father Heart Disease Father Breast Cancer Sister Heart Disease Sister Diabetes Son Relation Status Comments Father Mother Sister Son Social History Tobacco Use Types Packs/Day Years Used Date Smoking Tobacco: Former Cigarettes Q uit: 04/15/2002 Other Smokeless Tobacco: Current Chew Tobacco Cessation:Ready to Q uit: Not Asked; Counseling Given: Not Answered Comments:chews nicorette gum every day Alcohol Use Standard Drinks/Week Comments Yes 0 (1 standard drink = 0.6 oz pur e alcohol) daily, 9 drinks per week PHQ-2 Answer Date Recorded PHQ-2 Score 0 10/13/2022 Adolescent Education Answer Date Record ed Getting School Help Needed Not on file 06/19 Sex and Gender Information Value Date Recorded Sex Assigned at Not on file Gender Identity Not on file Sexual Orientation Not on file Last Filed Vital Signs Vital Sign Reading Time Taken Comments Blood Pressure 125/79 11/04/2022 3:35 PM NEUROPSYCHIATRIST Pulse 89 11/04/2022 3:35 PM NEUROPSYCHIATRIST Temperature 36.6 ??C (97.9 ??F) 11/04/2022 3:35 PM CS T Respiratory Rate 20 11/04/2022 3:35 PM NEUROPSYCHIATRIST Oxygen Saturation 96% 11/04/2022 3:35 PM NEUROPSYCHIATRIST Inhaled Oxygen Concentration - - Weight 68.3 kg (150 lb 9.6 oz) 11/04/2022 3:35 P M NEUROPSYCHIATRIST Height 157.5 cm (5' 2) 10/05/2022 9:21 AM NEUROPSYCHIATRIST Body Mass Index 27.55 10/05/2022 9:21 AM NEUROPSYCHIATRIST Plan of Treatment Health Maintenance Due Date Last Done Comments CT COLONOGRAPHY 1955 DEPRESSION ACTION PLAN 1955 FIT 1955 FLEX SIG 1955 sDNA (Cologuard) 1955 LUNG CANCER SCREENING 2005 RSV VACCINE ( & 60+) (1 - 1-dose 60+ series) 2015 DTAP/TDAP/TD IMMUNIZATION (2 - Td or Tdap) 06/27/2022 06/27/2012, 09/27/2005, 07/29/2005 PHQ-9 10/16/2022 04/15/2022 LIPID 11/14/2022 11/14/2021 EYE EXAM 01/25/2023 01/25/2022 A1C 02/01/2023 11/04/2022, 07/28, 02/20/2022 DIABETIC FOOT EXAM 02/20/2023 02/20/2022 ANNUAL REVIEW OF HM ORDERS 04/06/2023 04/06/2022 COVID-19 Vaccine ( season) 2023 08/08/2022, 02/10/2022, 07/08/2021, Additional history exists BMP 08/07/2023 08/07/2022 FALL RISK ASSESSMENT 08/07/2023 08/07/2022 MEDICARE ANNUAL WELLNESS VISIT 08/07/2023 08/07/2022, 11/07/2019, 10/28/2018, Additional history exists MICROALBUMIN 11/04/2023 11/04/2022, 11/25/2021 MAMMO SCREENING 04/11/2024 04/11/2022, 02/26, 03/13/2020, Additional history exists INFLUENZA VACCINE (Season Ended) 2024 06/08/2022, 08/14/2021, 06/23/2021, Additional history exists ADVANCE CARE PLANNING 08/07/2027 08/07/2022 COLONOSCOPY 06/21/2030 06/21/2020 COLORECTAL CANCER SCREENING 06/21/2030 DEXA 03/06/2034 03/06/2019 ZOSTER IMMUNIZATION Completed 02/16/2020, 0 Pneumococcal Vaccine: 65+ Years Completed 08/07/2022, 11/07/2019, 08/11/2002 HEPATITIS C SCREENING Discontinued HPV IMMUNIZATION Aged Out No longer e ligible based on patient's age to complete this topic IPV IMMUNIZATION Aged Out No longer e ligible based on patient's age to complete this topic MENINGITIS IMMUNIZATION Aged Out No l onger eligible based on patient's age to complete this topic RSV MONOCLONAL ANTIBODY Aged Out No l onger eligible based on patient's age to complete this topic Goals Goal Patient Goal Type Associated Problems Recent Progress Patient-Stated? Author Establish Regular Follow-Ups with PCP Care Plan HbA1C Not In Goal Radha Bolaños RN Get HbA1C Level in Goal Care Plan HbA1C Not In Goal Radha Bolaños RN Healthy Eating - follow a healthy eating pattern for diabetes Care Plan Diabetes Self-Management Education Needed to Optimize Self-Care Behaviors Radha Bolaños RN Being Active - get regular physical activity, working up to at least 150 minutes per week Care Plan Diabetes Self-Management Education Needed to Optimize Self-Care Behaviors Radha Bolaños RN Monitoring - monitor glucose and ketones as directed Care Plan Diabetes Self-Management Education Needed to Optimize Self-Care Behaviors Radha Bolaños RN Taking Medication - patient is consistently taking medications as directed Care Plan Diabetes Self-Management Education Needed to Optimize Self-Care Behaviors Radha Bolaños RN Problem Solving - know how to prevent and manage short-term diabetes complications Care Plan Diabetes Self-Management Education Needed to Optimize Self-Care Behaviors Radha Bolaños RN Reducing Risks - know how to prevent and treat long-term diabetes complications Care Plan Diabetes Self-Management Education Needed to Optimize Self-Care Behaviors No Baeyen, Radha A, RN Healthy Coping - use available resources to cope with the challenges of managing diabetes Care Plan Diabetes Self-Management Education Needed to Optimize Self-Care Behaviors Radha Bolaños RN Procedures Procedure Name Priority Date/Time Associated Diagnosis Comments ALBUMIN RANDOM URINE QUANTITATIVE Routine 11/04/2022 4:39 PM NEUROPSYCHIATRIST Type 1 diabetes mellitus without complication (H) HEMOGLOBIN A1C Routine 11/04/2022 4:14 PM NEUROPSYCHIATRIST Type 1 diabetes mellitus without complication (H) BASIC METABOLIC PANEL Routine 08/07/2022 10:50 AM NEUROPSYCHIATRIST Benign essential hypertension MA SCREENING BILATERAL W/ KONSTANTIN Routine 04/11/2022 11:30 AM CDT Visit for screening mammogram FOOT EXAM - HIM SCAN Routine 02/20/2022 EYE EXAM - HIM SCAN Routine 01/25/2022 LIPID PANEL (EXTERNAL RESULT) Routine 11/14/2021 8:11 AM NEUROPSYCHIATRIST COLONOSCOPY - HIM SCAN Routine 06/21/2020 DEXA - HIM SCAN Routine 03/06/2019 from Last 3 Months or Most Recently Relevant to Health Maintenance Results * Albumin Random Urine Quantitative with Creat Ratio (11/04/2022 4:39 PM NEUROPSYCHIATRIST) Creatinine Urine mg/dL 31.3 mg/dL 11/05/2022 4:24 PM NEUROPSYCHIATRIST [facility] Comment:The reference ranges have not been established in urine creatinine. The results should be integrated into the clinical context for interpretation. Albumin Urine mg/L <12.0 mg/L 2022 4:24 PM NEUROPSYCHIATRIST [facility] Comment:The reference ranges have not been established in urine albumin. The results should be integrated into the clinical context for interpretation. Albumin Urine mg/g Cr 11/05/2022 4:24 PM NEUROPSYCHIATRIST [facility] Comment: Unable to calculate, urine albumin and/or urine creatinine is outside detectable limits. Microalbuminuria is defined as an albumin:creatinine ratio of 17 to 299 for males and 25 to 299 for females. A ratio of albumin:creatinine of 300 or higher is indicative of overt proteinuria. Due to biologic variability, positive results should be confirmed by a second, first-morning random or 24-hour timed urine specimen. If there is discrepancy, a third specimen is recommended. When 2 out of 3 results are in the microalbuminuria range, this is evidence for incipient nephropathy and warrants increased efforts at glucose control, blood pressure control, and institution of therapy with an hwggidgeouj-rmfikunbpm-kzbaox (PHOEBE) inhibitor (if the patient can tolerate it). ?? Urine MID-STREAM URINE SPECIMEN / Unknown Non-blood Collection / Unknown 11/04/2022 4:39 PM NEUROPSYCHIATRIST 11/04/2022 4:39 PM NEUROPSYCHIATRIST Kathleen Marcelino MD LAB - URINE ORDER [facility] [address] [place] [address], [facility] [phone] * (ABNORMAL) Hemoglobin A1c (11/04/2022 4:14 PM NEUROPSYCHIATRIST) Hemoglobin A1C 7.0(H) 0.0 - 5.6 % 11/04/2022 4:38 PM NEUROPSYCHIATRIST [facility] Comment: Normal <5.7% Prediabetes 5.7-6.4% ?? Diabetes 6.5% or higher Note: Adopted from ADA consensus guidelines. Blood BLOOD SPECIMEN / Unknown Venipuncture / Unknown 11/04/2022 4:14 PM NEUROPSYCHIATRIST 11/04/2022 4:14 PM NEUROPSYCHIATRIST Kathleen Marcelino MD LAB - BLOOD ORDER [facility]RA [facility] [address], [address] [place] [address], [place] [phone] * (ABNORMAL) BASIC METABOLIC PANEL (08/07/2022 10:50 AM NEUROPSYCHIATRIST) Sodium 138 133 - 144 mmol/L 08/07/2022 7:03 PM NEUROPSYCHIATRIST [facility] Potassium 4.1 3.4 - 5.3 mmol/L 08/07/2022 7:03 PM NEUROPSYCHIATRIST [facility] Chloride 104 94 - 109 mmol/L 08/07/2022 7:03 PM NEUROPSYCHIATRIST [facility] Carbon Dioxide (CO2) 28 20 - 32 mmol/L 08/07/2022 7:03 PM NEUROPSYCHIATRIST [facility] Anion Gap 6 3 - 14 mmol/L 08/07/2022 7:03 PM NEUROPSYCHIATRIST [facility] Urea Nitrogen 14 7 - 30 mg/dL 08/07/2022 7:03 PM NEUROPSYCHIATRIST [facility] Creatinine 0.79 0.52 - 1.04 mg/dL 08/07/2022 7:03 PM NEUROPSYCHIATRIST [facility] Calcium 8.5 8.5 - 10.1 mg/dL 08/07/2022 7:03 PM NEUROPSYCHIATRIST [facility] Glucose 227(H) 70 - 99 mg/dL 08/07/2022 7:03 PM NEUROPSYCHIATRIST [facility] GFR Estimate 82 >60 mL/min/1.7 3m2 08/07/2022 7:03 PM NEUROPSYCHIATRIST [facility] Comment:Effective August 282020 eGFRcr in adults is calculated using the 2020 CKD-EPI creatinine equation which includes age and gender (Michelle et al., NEJ, DOI: 10.1056/XITYrt5685135) Blood STRUCTURE OF RIGHT UPPER LIMB / Unknown Venipuncture / Unknown 08/07/2022 10:50 AM NEUROPSYCHIATRIST 08/07/2022 10:50 AM NEUROPSYCHIATRIST Stephanie Groves MD LAB - BLOOD ORDERABL ES [facility] [address] Lab (no room number, 1st floor of clinic) [place] [address], [facility] [phone] * MA Screen Bilateral w/Konstantin (04/11/2022 11:30 AM CDT) Anatomical Region Laterality Modality Breast Bilateral Mammography Narrative 04/20/2022 9:28 AM CDT BILATERAL FULL FIELD DIGITAL SCREENING MAMMOGRAM WITH TOMOSYNTHESIS Performed on: 04/11/22 Compared to: 03/08/2020, 03/06/2019, and 03/04/2018 Technique: ??This study was evaluated with the assistance of Computer-Aided Detection. ??Breast Tomosynthesis was used in interpretation. Findings: The breasts have scattered areas of fibroglandular density. ?? There is no radiographic evidence of malignancy. IMPRESSION: ACR BI-RADS Category 1: Negative RECOMMENDED FOLLOW-UP: Annual routine screening mammogram The results and recommendations of this examination will be communicated to the patient. Screening Mammogram Selfreferral [facility] MOGRAPHY ORDERABLES * Foot Exam - HIM Scan (02/20/2022) Narrative Alyson Ott - 02/20/2022 See Care Everywhere-[facility] ([facility]) Provider Outside OTHER * Eye Exam - HIM Scan (01/25/2022) RETINOPATHY UNKNOWN Narrative Alyson Ott - 01/25/2022 Jade Ang [facility] ??P Abstract Quality Initiatives Please update eye exam. She last had in [place] 01/2022 at [facility]. Patient Reported OTHER * Lipid Panel (External Result) (11/14/2021 8:11 AM NEUROPSYCHIATRIST) Cholesterol (External) 163 <200 mg/dL [place], [place] Triglycerides (External) 102 <150 mg/dL [facility] [place] HDL Cholesterol (External) 65 >=40 mg/dL [facility] [place] LDL Cholesterol (External) 78 <100 mg/dL [facility] [place] Non HDL Cholesterol (External) 98 <130 mg/dL [facility] [place] Blood 11/14/2021 8:11 AM NEUROPSYCHIATRIST Narrative [place] - 11/14/2021 8:11 AM NEUROPSYCHIATRIST Care Everywhere, [facility] ([facility]) Provider Outside LAB - HIM EXTERNAL R ESULT [facility] [place] [address] [place] [address], [facility] [phone] * Colonoscopy - HIM Scan (06/21/2020) Narrative Rita Pisano - 06/21/2020 Flori Jovel MA ??P Abstract Quality Initiatives Please abstract the following data from this visit with this patient into the appropriate field in Epic: Other Tests found in the patient's chart through Chart Review/Care Everywhere: Colonoscopy done by this [facility] on this date: 06/21/20 and Mammogram done by this [facility] on this date: 03/18/21 Provider Outside PROCEDURES * DEXA - HIM Scan (03/06/2019) Anatomical Region Laterality Modality Other Narrative 03/06/2019 Care Everywhere, [place] Provider Outside IMG DEXA ORDERABLES from Last 3 Months or Most Recently Relevant to Health Maintenance Additional Health Concerns Active Problems Noted Date Diagnosed Date HbA1C Not In Goal 05/25/2022 Diabetes Self-Management Edu cation Needed to Optimize Self-Care Behaviors 05/25/2022 Care Teams Brim Stitcher Relationship Specialty [place] [address] [place] [address] PCP - General Family Medicine 04/15/22 [place] [address] [place] [address] Assigned PCP 03/12/22 Radha Wong, RN Consulting Solution Director Diabetes Education 05/25/22 Reed Flores DO [address] [place] [address] Assigned Gastroenterology Provider 06/27/22
--- OUTSIDE RECORDS SUMMARY | 2024-03-06 09:40 | XMS_ITS | Encounter Summary ---
Author Organization [facility] ([facility]) Address [address] [place] [address] Phone Care Team Providers Care Plant Controller Name Role Phone Rina Leblanc MD Primary Care Provider [phone] Felipe Nelson MD Unavailable [phone] [facility] Unavailable [phone] Mariano Johansen MD Unavailable [phone] Beatriz Walker MD Unavailable [phone] Isaac Diehl MD Unavailable [phone] Shanell Palmer MD Unavailable [phone] Liane Daniels Unavailable Reason for Visit * Reason Comments Other Encounter Details Date Type Department Care Team (Late st Contact Info) Description 09/22/2013 Refill Family [facility] [address] [place], [place] [address] Rina Leblanc MD [address] [place] [address] Social History Tobacco Use Types [...] activity Lifestyle On track( 022 9:52 AM 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 MACHINE TENDER) No Rina Leblanc MD documented as of this encounter Visit Diagnoses Not on filedocumented in this encounter Additional Health Concerns Infection Onset Date Last Indicated Resolved Time COVID-19 Pending 06/13/2020 06/14/2020 06/17/2020 8:01 AM CDT COVID-19 Pending 10/03/2020 10/03/2020 10/04/2020 7:38 AM EMBOSSING MACHINE TENDER documented as of this encounter Care Teams Plant Controller Relationship Specialty Start Date End Date Rina Leblanc MD [address] [place] [address] PCP - General Internal Medicine 11/24/12 02/25/22 Felipe Nelson MD [address] [place] [address] [address] [place] [address] Corn Detasseler & Gynecology Obstetrics and Gynecology 09/10/17 11/10/20 Kayley Breaux, AB, [facility] [address] [facility] [address] [place] [address] Nurse Practitioner Nurse Practitioner wo Specialty 07/11/18 Mariano Johansen MD [address] [place] [address] Surgeon Orthopaedics 05/02/19 Beatriz Walker MD [address] [place] [address] Surgeon General Surgery 04/08/20 11/10/20 Isaac Diehl MD [address] [place] [address] Corn Detasseler & Gynecology Obstetrics and Gynecology 11/11/20 11/16/21 Shanell Palmer MD [address] [place] [address] Consulting Physician Gastroenterology 11/11/20 Laine Daniels, [facility] [address] [place] [address] Nurse Practitioner Gynecology 11/17/21 Dr Smith Optometry 10/28/18 Dr Boom Mccormack Dermatology 11/11/20 documented as of this encounter
--- OUTSIDE RECORDS SUMMARY | 2024-03-06 09:40 | XMS_ITS | Encounter Summary ---
Author Organization [facility] ([facility]) Address [address] [place] [address] Phone Care Team Providers Care Clothes Ironer Name Role Phone Rina Leblanc MD Primary Care Provider [phone] Felipe Nelson MD Unavailable [phone] Kayley Breaux, [facility] Unavailable [phone] Mariano Johansen MD Unavailable [phone] Beatriz Walker MD Unavailable [phone] Isaac Diehl MD Unavailable [phone] Shanell Palmer MD Unavailable [phone] Laine Daniels Unavailable Reason for Visit * Reason Comments Other Encounter Details Date Type Department Care Team (Late st Contact Info) Description 01/09/2016 Refill 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) No Rina Leblanc MD documented as of this encounter Visit Diagnoses Diagnosis Benign essential HTN- Primary documented in this encounter Additional Health Concerns Infection Onset Date Last Indicated Resolved Time COVID-19 Pending 06/13/2020 06/14/2020 06/17/2020 8:01 AM CDT COVID-19 Pending 10/03/2020 10/03/2020 10/04/2020 7:38 AM METAL WINDOW SCREEN ASSEMBLER documented as of this encounter Care Teams Clothes Ironer Relationship Specialty Start Date End Date Rina Leblanc MD [address] [place] [address] PCP - General Internal Medicine 11/24/12 02/25/22 Felipe Nelson MD [address] [place] [address] Senior Risk Manager & Gynecology Obstetrics and Gynecology 09/10/17 11/10/20 Kayley Breaux ARNP, DNP [address] [facility] [address] [place] [address] Nurse Practitioner Nurse Practitioner wo Specialty 07/11/18 Mariano Johansen MD [address] [place] [address] Surgeon Orthopaedics 05/02/19 Beatriz Walker MD [address] [place] [address] Surgeon General Surgery 04/08/20 11/10/20 Isaac Diehl MD [address] [place] [address] Senior Risk Manager & Gynecology Obstetrics and Gynecology 11/11/20 11/16/21 Shanell Palmer MD [address] [place] [address] [address] [place] [address] Consulting Physician Gastroenterology 11/11/20 Laine Daniels, [facility] [address] [place] [address] [address] [place] [address] Nurse Practitioner Gynecology 11/17/21 Dr Smith Optometry 10/28/18 Dr Boom Mccormack Dermatology 11/11/20 documented as of this encounter
--- OUTSIDE RECORDS SUMMARY | 2024-03-06 09:40 | XMS_ITS | Encounter Summary ---
Author Organization [facility] ([facility]) Address [address] [place] [address] Phone Care Team Providers Care Dog Licenser Name Role Phone Rina Leblanc MD Primary Care Provider Felipe Nelson MD Unavailable [phone] Kayley Breaux, [facility] Unavailable [phone] Mariano Johansen MD Unavailable [phone] Beatriz Walker MD Unavailable [phone] Isaac Diehl MD Unavailable [phone] Shanell Palmer MD Unavailable [phone] Laine Daniels Unavailable Reason for Visit * Reason Comments Other Encounter Details Date Type Department Care Team (Late st Contact Info) Description 06/02/2015 Refill [facility] [address] [place], [place] [address] Rina Leblanc MD [address] [place] [address] Essential hypertension, benign (Primary Dx) Social History Tobacco Use Types [...] activity Lifestyle On track( 022 9:52 AM PORT STEWARD) No Rina Leblanc MD documented as of this encounter Visit Diagnoses Diagnosis Essential hypertension, benign- Primary documented in this encounter Additional Health Concerns Infection Onset Date Last Indicated Resolved Time COVID-19 Pending 06/13/2020 06/14/2020 06/17/2020 8:01 AM CDT COVID-19 Pending 10/03/2020 10/03/2020 10/04/2020 7:38 AM PORT STEWARD documented as of this encounter Care Teams Dog Licenser Relationship Specialty Start Date End Date Rina Leblanc MD [address] [place] [address] PCP - General Internal Medicine 11/24/12 02/25/22 Felipe Nelson MD [address] [place] [address] Deblocker & Gynecology Obstetrics and Gynecology 09/10/17 11/10/20 Kayley Breaux ARNP, [facility] [address] [facility] [address] [place] [address] Nurse Practitioner Nurse Practitioner wo Specialty 07/11/18 Mariano Johansen MD [address] [place] [address] Surgeon Orthopaedics 05/02/19 Beatriz Walker MD [address] [place] [address] Surgeon General Surgery 04/08/20 11/10/20 Isaac Diehl MD [address] [place] [address] Deblocker & Gynecology Obstetrics and Gynecology 11/11/20 11/16/21 Shanell Palmer MD [address] [place] [address] [address] [place] [address] Consulting Physician Gastroenterology 11/11/20 Laine Daniels, OPERATIONS DEVELOPER [address] [place], [place] [address] Nurse Practitioner Gynecology 11/17/21 Dr Smith Optometry 10/28/18 Dr Boom Mccormack Dermatology 11/11/20 documented as of this encounter
--- OUTSIDE RECORDS SUMMARY | 2024-03-06 09:40 | XMS_ITS | Encounter Summary ---
Author Organization [facility] ([facility]) Address [address] [place] [address] Phone Care Team Providers Care Dye House Vat Worker Name Role Phone aKyley Breaux DNP Unavailable [phone] Mariano Johansen MD Unavailable [phone] Shanell Palmer MD Unavailable [phone] Laine Daniels Unavailable [phone] Reason for Visit * Reason Comments Other Encounter Details Date Type Department Care Team (Late st Contact Info) Description 02/07/2024 Refill Extruding Press [facility] [address] [place] [address] Rina Leblanc MD [address] [place], [place] [id number] Reactive depression (situational) Social History Tobacco Use Types Packs/Day Years Used Date Smoking Tobacco: Former Cigarettes 0.5 15 Q uit: 1999 Smokeless Tobacco: Never Comments:uses nicotine gum Alcohol [...] does he/she have serious difficulty hearing? No 11/27/2021 Is this person blind or does he/she have serious difficulty seeing even when wearing glasses? No Does this person have seriou s difficulty walking or climbing stairs? No 11/27/2021 Does this person have difficulty dressing or [place]? No 11/27/2021 Because of a physical, menta l or emotional condition, does this person have difficulty doing errands alone such as visiting a doctor's office or shopping? No 11/27/2021 Cognitive Status Response Date of Assessm ent Because of a physical, menta l or emotional condition, does this person have serious difficulty concentrating, remembering, or making decisions? No 11/27/2021 documented as of this encounter Plan of Treatment Not on file documented as of this encounter Goals Goal Patient Goal Type Associated Problems Recent Progress Patient-Stated? 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 [address] [place] [address] Nurse Practitioner Nurse Practitioner wo Specialty 07/11/18 Mariano Johansen MD [address] [place] [address] Surgeon Orthopaedics 05/02/19 Shanell Palmer MD [address] [place] [address] Consulting Physician Gastroenterology 11/11/20 Laine Daniels ARNP [address] [place] [address] Nurse Practitioner Gynecology 11/17/21 Dr Smith Optometry 10/28/18 Dr Boom Mccormack Dermatology 11/11/20 documented as of this encounter
--- OUTSIDE RECORDS SUMMARY | 2024-03-06 09:41 | XMS_ITS | Encounter Summary ---
Author Organization [facility] Address [address] [place] [address] Care Team Providers Care Tank Worker Name Role Phone Stephanie Groves MD Primary Care Provider [phone] Stephanie Groves MD Unavailable Radha Wong RN Unavailable Jade Ang [facility] Unavailable Reed Flores DO Unavailable Ita Tillman [facility] Unavailable Encounter Details Date Type Department Care Team (Late st Contact Info) Description 06/07/2023 MyC Medical Advice [facility] [address] [facility] [address] [place] [address] Ita Tillman, [facility] [address] [place] [address] Social History Tobacco Use Types Packs/Day Years Used Date Smoking Tobacco: Former Cigarettes Q uit: 04/15/2002 Other Smokeless Tobacco: Current Chew Comments:chews nicorette gum every day Alcohol Use Standard Drinks/Week Comments Yes 0 (1 standard drink = 0.6 oz pur e alcohol) daily, 9 drinks per week PHQ-2 Answer Date Recorded PHQ-2 Score 0 10/13/2022 Sex and Gender Information Value Date Recorded [...] to Optimize Self-Care Behaviors Radha Bolaños RN Healthy Coping - use available resources to cope with the challenges of managing diabetes Care Plan Diabetes Self-Management Education Needed to Optimize Self-Care Behaviors No Radha Wong RN documented as of this encounter Visit Diagnoses Not on filedocumented in this encounter Additional Health Concerns Active Problems Noted Date Diagnosed Date HbA1C Not In Goal 05/25/2022 Diabetes Self-Management Edu cation Needed to Optimize Self-Care Behaviors 05/25/2022 Assessment Noted Time PHQ-9 Depression Total Score: 0 04/15/20 22 11:18 AM CDT documented as of this encounter Care Teams Tank Worker Relationship Specialty [place] [address] [place] [address] PCP - General Family Medicine 04/15/22 [place] [address] [place] [address] Assigned PCP 03/12/22 Radha Wong, RN Roustabout Supervisor Diabetes Education 05/25/22 aJde Ang, [facility] [address] [place], [place] [address] Assigned MTM Pharmacist 06/24/22 Reed Flores DO [address] [place], [place] [address] Assigned Gastroenterology Provider 06/27/22 Ita Tillman, [facility] [address] [place] [address] Pharmacist Pharmacist 06/07/23 07/18/23 documented as of this encounter
--- OUTSIDE RECORDS SUMMARY | 2024-03-06 09:41 | XMS_ITS | Encounter Summary ---
Author Organization [facility] Address [address] [place] [address] Care Team Providers Care White Lead Grinder Name Role Phone Jade Ang [facility] Unavailable Stephanie Groves MD Primary Care Provider Stephanie Groves MD Unavailable Radha Wong RN Unavailable Jade Ang [facility] Unavailable [phone] Reed Flores DO Unavailable Ita Tillman [facility] Unavailable [phone] Encounter Details Date Type Department Care Team (Late st Contact Info) Description 10/01/2022 MyC Medical Advice [facility] [address] [place] [address] Tracee Campuzano, RN Social History Tobacco Use Types Packs/Day Years Used Date Smoking Tobacco: Former Cigarettes Q uit: 04/15/2002 Other Smokeless Tobacco: Current Chew Comments:chews nicorette gum every day Alcohol Use Standard Drinks/Week Comments Yes 0 (1 standard drink = 0.6 oz pur e alcohol) daily, 9 drinks per week PHQ-2 Answer Date Recorded PHQ-2 Score 0 06/22/2022 Sex and Gender Information Value Date Recorded [...] Time PHQ-9 Depression Total Score: 0 04/15/20 11:18 AM CDT documented as of this encounter Care Teams White Lead Grinder Relationship Specialty [place] [address] [place] [address] PCP - General Family Medicine 04/15/22 Jade Ang [facility] [address] [place] [address] Pharmacist Pharmacist 04/15/22 10/14/22 [place] [address] [place] [address] Assigned PCP 03/12/22 Radha Wong, RN Manager Marketing Communications Diabetes Education 05/25/22 Jade Ang, [facility] [address] [place] [address] Assigned MTM Pharmacist 06/24/22 Reed Flores DO [address] [place], [place] [address] Assigned Gastroenterology Provider 06/27/22 Ita Tillman, [facility] [address] [place] [id number] Pharmacist Pharmacist 06/07/23 07/18/23 documented as of this encounter
--- OUTSIDE RECORDS SUMMARY | 2024-03-06 09:41 | XMS_ITS | Encounter Summary ---
Author Organization [facility] Address [address], [place] [address] Care Team Providers Care Client Service Consultant Name Role Phone Clinician, Not Found MD Primary Care Provider Un available Reason for Visit * Reason Comments Prior Authorization For Medication Dexco m G7 Sensor continuous blood glucose device Encounter Details Date Type Department Care Team (Late st Contact Info) Description 01/24/2024 Telephone Specialty Center [facility] [address] [place] [address]. [place] [address] Edinson Lanier MD [address] [place] [address] Prior Authorization For Medication (Dexcom G7 Sensor continuous blood glucose device) Social History Tobacco Use Types Packs/Day Years Used Date Smoking Tobacco: Former Cigarettes Alcohol Use Standard Drinks/Week Comments Yes 0 (1 standard drink = 0.6 oz pur e alcohol) Sex and Gender Information Value Date Recorded Sex Assigned at Not on file Gender Identity Not on file Sexual Orientation Not on file documented as of this encounter Nursing Notes * Rae Duong RMA - 01/28/2024 7:11 AM CDT The prior authorization for Dexcom G7 Sensor continuous blood glucose device has been approved. Pharmacy was notified via fax and asked them to notify the patient when prescription is ready for product picker. ZACK Samuels 01/28/2024, 7:11 AM * Alexandra Cedeño LPN - 01/27/2024 3:04 PM CDT The prior authorization for Dexcom G7 Sensor continuous blood glucose device Prior Authorization has been approved. Pharmacy has been notified. Alexandra Cedeño LPN * Rae Greenfield CMA - 01/27/2024 2:55 PM CDT Regarding PA for Dexcom G7 Sensor continuous blood glucose device Call placed to [facility] for status update, spoke with Caryl who states PA Approved on 01/25/2024. Coverage Dates: 12/25/2023 - 01/24/2025 Approval letter being faxed to [facility] at [phone] to update in [facility]. Case #: [id number] Valentina Greenfield CMA 01/27/2024, 2:55 PM * Laila Jarrett LPN - 01/24/2024 6:41 AM CDT Images from the original note were not included. PA DEPT recieved this PA request. Care team please review and request the PA of Needed. documented in this encounter Plan of Treatment Upcoming Encounters Date Type Department Care Team (Late st Contact Info) Description 07/25/2024 11:15 AM CDT Appointment Specialty Center [address] [facility] [address] [place] [address]. [place] [address] Edinson Lanier MD [address] [place] [address] documented as of this encounter Visit Diagnoses Not on filedocumented in this encounter Care Teams Client Service Consultant Relationship Specialty Start Date End Date Clinician, Not Found, [place] [address] PCP - General 09/29/23 documented as of this encounter
--- OUTSIDE RECORDS SUMMARY | 2024-03-06 09:41 | XMS_ITS | Encounter Summary ---
Author Organization [facility] Address [address], [place] [address] Care Team Providers Care Manager Background Name Role Phone Clinician, Not Found MD Primary Care Provider Un available Reason for Referral * Medication Prior Authorization - Authorized Specialty Diagnoses / Procedures Referred By Contac t Referred To Contact Diagnoses Type 1 diabetes mellitus without complication (HRC) Edinson Lanier MD [address] [place] [address] Referral ID Status Reason Start Date Expiration Date V isits Requested Visits Authorized [id number] Authorized 01/25/2024 01/24/2025 1 1 Reason for Visit * Reason Comments Diabetes Type I Encounter Details Date Type Department Care Team (Latest Contact Info) Description 01/18/2024 8:45 AM CDT Office Visit Specialty Center [facility] [place]. [place], [place] [phone] Edinson Lanier MD [address] [place], [place] [phone] Type 1 diabetes mellitus without complication (HRC) (Primary Dx); Encounter for long-term (current) use of medications Social History Tobacco Use Types Packs/Day Years Used Date Smoking Tobacco: Former Cigarettes Alcohol Use Standard Drinks/Week Comments Yes 0 (1 standard drink = 0.6 oz pur e alcohol) Sex and Gender Information Value Date Recorded Sex Assigned at Not on file Gender Identity Not on file Sexual Orientation Not on file documented as of this encounter Last Filed Vital Signs Vital Sign Reading Time Taken Comments Blood Pressure 106/73 01/18/2024 9:00 AM CDT Pulse 77 01/18/2024 9:00 AM CDT Temperature - - Respiratory Rate - - Oxygen Saturation - - Inhaled Oxygen Concentration - - Weight 68 kg (150 lb) 01/18/2024 9:00 AM CDT Height - - Body Mass Index 27.44 10/07/2023 10:20 AM INFORMATION SUPPORT PROJECT MANAGER documented in this encounter Progress Notes * Edinson Lanier MD - 01/18/2024 8:45 AM CDT Images from the original note were not included. Endocrinology follow up visit Cooler Room Worker: Edinson Lanier MD Reason for consult: Diabetes type 1 My first evaluation at [facility] was on 12/29/22 History is obtained from patient and chart review. HPI: Akua Bryant is a 68 y.o. old female seen in consultation. First visit evaluation : She was diagnosed with DM type 1 when she was 50. C- peptide <0.1 in 2019 Currently on tandem T -slim and DEXCOM CGM No complications from diabetes including diabetic nephropathy, diabetic retinopathy, and diabetic neuropathy. She reported no history of stroke or heart attack. Hypoglycemia : No Meals per day : 3 20-30 g per meal Snacks : sometimes Drinks : water . No soda , no sugary drink Exercise : Yes , walking. DM related hospitalizatio : No DM related medication Statin : lipitor 20 mg ACEI/ARB : losartan Eye exam : patient is advised to follow on annual diabetic eye exam. No DR both eyes 08/19 Today, She is doing fine. She denies any nausea, abdominal pain, chest pain or shortness of breath.She reports CGM goes off when her BG below 80 mg/dl multiple times a day. I reviewed her CGM average BG 154 mg/dl. 75.4% very high , 21% high , 72% in range , 1.4% low Review of Systems: Please see HPI as well. A 10 pt ROS was completed and negative other than positive for above. Past Medical History reviewed and updated in chart No past medical history on file. Family History reviewed and updated in chart Family History Problem Relation Age of Onset Macular Degeneration Father Glaucoma Father Diabetes Father Cataract Father Diabetes Son Retinal Detachment Negative Family History Amblyopia/Strabismus Negative Family History Social History reviewed and updated in chart Social History Socioeconomic History Marital status: Spouse name: Not on file Number of children: Not on file Years of education: Not on file Highest education level: Not on file Occupational History Not on file Physical Exam: There were no vitals taken for this visit. No data to display Wt Readings from Last 3 Encounters: 10/07/23 151 lb 6 oz (68.7 kg) 04/06/23 145 lb 9.6 oz (66 kg) 12/29/22 154 lb (69.9 kg) BP Readings from Last 3 Encounters: 10/07/23 135/76 04/06/23 127/75 01/13/23 (!) 142/80 Psych: patient pleasant, appropriate, mood is good Eyes: no proptosis ENT: moist mucus membranes Lungs: breathing normally without extra effort Neurologic: Alert and oriented. Labs: reviewed Diabetes HEMOGLOBIN A1C SCREENING (%) Date Value 02/08/2023 7.9 (H) Hemoglobin A1C (%) Date Value 09/30/2023 7.9 (H) 11/04/2022 7.0 (H) 08/07/2022 6.9 (H) Hemoglobin A1C (Rapid) (%) Date Value 04/06/2023 6.9 (H) Cholesterol (mg/dL) Date Value 09/30/2023 190 HDL Cholesterol (mg/dL) Date Value 09/30/2023 71 LDL, Calculated (mg/dL) Date Value 09/30/2023 100 Triglyceride (mg/dL) Date Value 09/30/2023 95 Albumin/Creatinine Ratio, Urine, Random (mg/g) Date Value 01/13/2024 9 No results found for: HBA1C No results found for: GFR BMP: No results found for: SODIUM, K, CL, BICARB, BUN, CREATININE, CA, PHOS, MG Liver: No results found for: GGT, ALKPHOS, ALB Lipids Cholesterol (mg/dL) Date Value 09/30/2023 190 LDL, Calculated (mg/dL) Date Value 09/30/2023 100 TSH, Reflex (uIU/mL) Date Value 09/30/2023 1.05 No results found for: TSI No results found for: VTD25 No results found for: PROLACTIN No results found for: STESTOSTERON, TETOT, TTEST Assessment and Plan: 1. Type 1 diabetes/ OLGA Fairly- control Dx when she was 50 A1c 7.6 01/18 Target A1c < 7%, premeal glucose target 80-130 mg/dL , postprandial glucose target < 180 mg/dl. C-Peptide <0.1 in 08/2020 Complications : none 01/18 no ACR , TSH WNL Currently on insulin pump T-slim tandem Start Time Basal Rate Carb Ratio(grams/unit) Correction Factor Target Blood Glucose (mg/dL) 1200 0.5 8 50 130 Plan - I reviewed her CGM which is at goal with mild hypoglycemia. 1.4% low. 72% in range. I change alert cut off from 80 to 70 mg/dl. - I will not change any setting today - due to her sensitivity to insulin , will avoid hypoglycemia and ok to keep BG in higher range. - patient is advised to use exercise mode when she exercises to avoid hypoglycemia - patient is advised to call me if she develops hypoglycemia with BG < 70 mg/dL or persistently elevated BG > 180 mg/dL - following with DME 2. HTN - on losartan , amlodipine 5 mg daily - BP 106/73 today. No changes 3. Lipid LDL 100 10/20 Continue lipitor 20 mg daily Return to clinic in 6 months for follow up. Orders Placed This Encounter Hgb A1C Basic Metabolic Panel Albumin/Creatinine Ratio,Random Urine Edinson Lanier MD Endocrinology staff documented in this encounter Plan of Treatment Upcoming Encounters Date Type Department Care Team (Late st Contact Info) Description 07/25/2024 11:15 AM CDT Appointment Specialty Center [address] [place] [address]. [place], [place] [phone] Edinson Lanier MD [address] [place] [phone] documented as of this encounter Results * (ABNORMAL) Basic Metabolic Panel (01/13/2024 9:14 AM CDT) Sodium 138 136 - 145 mmol/L 01/13/2024 2:19 PM [facility] Potassium 4.5 3.5 - 5.1 mmol/L 01/13/2024 2:19 PM [facility] Chloride 104 98 - 109 mmol/L 01/13/2024 2:19 PM [facility] CO2 25 20 - 29 mmol/L 01/13/2024 2:19 PM [facility] Anion Gap 9 7 - 16 mmol/L 01/13/2024 2:19 PM [facility] Calcium 9.0 8.4 - 10.4 mg/dL 01/13/2024 2:19 PM [facility] BUN 12 7 - 26 mg/dL 01/13/2024 2:19 PM [facility] Creatinine 0.87 0.55 - 1.02 mg/dL 01/13/2024 2:19 PM [facility] Glucose 126(H) 70 - 100 mg/dL 01/13/2024 2:19 PM [facility] Comment:The given reference range is for the fasting state. Non-fasting reference range for glucose is 70 - 180 mg/dL. GFR, Estimated >60 >60 mL/min/1.7 3m2 01/13/2024 2:19 PM [facility] Hours Fasting 0.0 8 - 12 Hours 01/13/2024 2:19 PM [facility] Blood Venipuncture / Unknown 01/13/2024 9:14 AM CDT 01/13/2024 9:14 AM T Edinson Lanier MD LAB_1 [facility] [address] [place] [address], [facility] * (ABNORMAL) Hgb A1C (01/13/2024 9:14 AM CDT) Hemoglobin A1C 7.6(H) <=5.6 % 01/13/2024 6:05 PM [facility] Estimated Average Glucose (Calc) 171 < 117 mg/dL 01/13/2024 6:05 PM CDT [facility] Comment:Estimated average gl ucose (eAG) converts A1c into glucose units (mg/dL) and estimates average glucose over the past approximately 3 months. The eAG reference interval (<117 mg/dL) corresponds to an A1c of <5.7%. Blood Venipuncture / Unknown 01/13/2024 9:14 AM CDT 01/13/2024 9:14 AM CDT Narrative [facility] - 01/13/2024 6:05 PM CDT For patients not previously diagnosed with diabetes: 5.7-6.4%: Increased risk for diabetes 6.5% and greater: Diagnostic for diabetes For patients diagnosed with diabetes: <8.0%: Goal of therapy for ages 18-75 Clinicians may recommend a higher or lower goal for specific individuals. Edinson Lanier MD LAB_1 Performing Organization Address City/State/[facility] Co de Phone Number [facility] [address] documented in this encounter Visit Diagnoses Diagnosis Type 1 diabetes mellitus without complication (HRC)- Primary Type I (juvenile type) diabetes mellitus without mention of complication, not stated as uncontrolled Encounter for long-term (current) use of medications Encounter for long-term (current) use of other medications documented in this encounter Care Teams Manager Background Relationship Specialty Start Date End Date Clinician, Not Found, [place] [address] PCP - General 09/29/23 documented as of this encounter
--- OUTSIDE RECORDS SUMMARY | 2024-03-06 09:41 | XMS_ITS | Encounter Summary ---
Author Organization [employer] Address [address] [place] [address] Care Team Providers Care Reheat Furnace Operator Name Role Phone Clinician, Not Found MD Primary Care Provider Un available Encounter Details Date Type Department Care Team (Late st Contact Info) Description 01/13/2024 9:10 AM CDT Lab Visit [facility] [address] [place] [address] Type 1 diabetes mellitus without complication (HRC); Encounter for long-term (current) use of medications Social History Tobacco Use Types Packs/Day Years Used Date Smoking Tobacco: Former Cigarettes Sex and Gender Information Value Date Recorded Sex Assigned at Not on file Gender Identity Not on file Sexual Orientation Not on file documented as of this encounter Plan of Treatment Upcoming Encounters Date Type Department Care Team (Late st Contact Info) Description 07/25/2024 11:15 AM CDT Appointment Specialty Center [address] [place] [address]. [place] [address] Edinson Lanier MD [address] [place] [phone] documented as of this encounter Procedures Procedure Name Priority Date/Time Associated Diagnosis Comments ALBUMIN/CREAT RATIO Routine 01/13/2024 9:24 AM CDT Type 1 diabetes mellitus without complication (HRC) BASIC METABOLIC PANEL Routine 01/13/2024 9:14 AM CDT Type 1 diabetes mellitus without complication (HRC) Encounter for long-term (current) use of medications HGB A1C Routine 01/13/2024 9:14 AM CDT Type 1 diabetes mellitus without complication (HRC) documented in this encounter Results * Albumin/Creatinine Ratio,Random Urine (01/13/2024 9:24 AM CDT) Pathologist [facility] Albumin/Creati nine Ratio, Urine, Random 9 <30 mg/g 01/13/2024 12:58 PM CDT [facility] Albumin, Urine, Random 5.4 mg/L 01/13/2024 12:58 PM T [facility] Creatinine, Urine, Random 59 >20 mg/dL mg/dL 01/13/2024 12:58 PM [facility] Urine Non-blood Collection / Unknown 01/13/2024 9:24 AM CDT 01/13/2024 9:24 AM CDT Edinson Lanier MD LAB_1 Performing Organization Address City/State/[facility] Co de Phone Number [facility] [address] [place] [address] * (ABNORMAL) Basic Metabolic Panel (01/13/2024 9:14 AM CDT) [facility] Sodium 138 136 - 145 mmol/L 01/13/2024 2:19 PM [facility] Potassium 4.5 3.5 - 5.1 mmol/L 01/13/2024 2:19 PM [facility] Chloride 104 98 - 109 mmol/L 01/13/2024 2:19 PM [facility] CO2 25 20 - 29 mmol/L 01/13/2024 2:19 PM [facility] Anion Gap 9 7 - 16 mmol/L 01/13/2024 2:19 PM [facility] Calcium 9.0 8.4 - 10.4 mg/dL 01/13/2024 2:19 PM [facility] BUN 12 7 - 26 mg/dL 01/13/2024 2:19 PM [facility] Creatinine 0.87 0.55 - 1.02 mg/dL 01/13/2024 2:19 PM [facility] Glucose 126(H) 70 - 100 mg/dL 01/13/2024 2:19 PM [facility] Comment:The given reference range is for the fasting state. Non-fasting reference range for glucose is 70 - 180 mg/dL. GFR, Estimated >60 >60 mL/min/1.7 3m2 01/13/2024 2:19 PM T [facility] Hours Fasting 0.0 8 - 12 Hours 01/13/2024 2:19 PM T [facility] Blood Venipuncture / Unknown 01/13/2024 9:14 AM CDT 01/13/2024 9:14 AM CDT Edinson Lanier MD LAB_1 Performing Organization Address City/State/[facility] Co de Phone Number [facility] [address] [place] [address] * (ABNORMAL) Hgb A1C (01/13/2024 9:14 AM CDT) Hemoglobin A1C 7.6(H) <=5.6 % 01/13/2024 6:05 PM T [facility] Estimated Average Glucose (Calc) 171 < 117 mg/dL 01/13/2024 6:05 PM [facility] Comment:Estimated average gl ucose (eAG) converts A1c into glucose units (mg/dL) and estimates average glucose over the past approximately 3 months. The eAG reference interval (<117 mg/dL) corresponds to an A1c of <5.7%. Blood Venipuncture / Unknown 01/13/2024 9:14 AM CDT 01/13/2024 9:14 AM T Narrative [facility] - 01/13/2024 6:05 PM CDT For patients not previously diagnosed with diabetes: 5.7-6.4%: Increased risk for diabetes 6.5% and greater: Diagnostic for diabetes For patients diagnosed with diabetes: <8.0%: Goal of therapy for ages 18-75 Clinicians may recommend a higher or lower goal for specific individuals. Edinson Lanier MD LAB_1 [facility] [address] [place] [phone], [facility] documented in this encounter Visit Diagnoses Diagnosis Type 1 diabetes mellitus without complication (HRC) Type I (juvenile type) diabetes mellitus without mention of complication, not stated as uncontrolled Encounter for long-term (current) use of medications Encounter for long-term (current) use of other medications documented in this encounter Care Teams Reheat Furnace Operator Relationship Specialty Start Date End Date Clinician, Not Found, [place] [address] PCP - General 09/29/23 documented as of this encounter
--- OUTSIDE RECORDS SUMMARY | 2024-03-06 09:41 | XMS_ITS ---
Author Organization [employer] Address [address] [place] [address] Care Team Providers Care Foreign Service Officer Name Role Phone Stephanie Groves MD Primary Care Provider [phone] Stephanie Groves MD Unavailable Radha Wong RN Unavailable [phone] Reed Flores DO Unavailable Diabetes Self-Management Education Status:Enrolled (Active) Start date:05/25/2022 Enrollment date:05/25/2022 Current support & services provided:Individual Education, Latent Autoimmune Diabetes Management Case Team Name Relationship Phone Radha Wong, statistical technician(Responsib le Staff) [phone] Continued Care and Services Coordination
--- OUTSIDE RECORDS SUMMARY | 2024-03-06 09:41 | XMS_ITS | Referral Summary ---
Author Organization [place] Address [address] [place] [address] Care Team Providers Care Derrick Boat Runner Name Role Phone Stephanie Groves MD Primary Care Provider [phone] Stephanie Groves MD Unavailable Radha Wong RN Unavailable [phone] Reed Flores DO Unavailable Allergies Active [...] each 3 05/25/2022 Active Continuous Blood Gluc Dry Janitor (DEXCOM G6 FORMULA MIXER) DEVIIndications:Type 1 diabetes mellitus without complication (H) [...] 06/27/2012 Zoster recombinant adjuvante d (SHINGRIX) 02/16/2020,11/23/2019 Social History Tobacco Use Types Packs/Day Years [...] Comments Blood Pressure 125/79 11/04/2022 3:35 PM CERAMIC WORKER Pulse 89 11/04/2022 3:35 PM CERAMIC WORKER Temperature 36.6 ??C (97.9 ??F) 11/04/2022 3:35 PM CS T Respiratory Rate 20 11/04/2022 3:35 PM CERAMIC WORKER Oxygen Saturation 96% 11/04/2022 3:35 PM CERAMIC WORKER Inhaled Oxygen Concentration - - Weight 68.3 kg (150 lb 9.6 oz) 11/04/2022 3:35 P M CERAMIC WORKER Height 157.5 cm (5' 2) 10/05/2022 9:21 AM CERAMIC WORKER Body Mass Index 27.55 10/05/2022 9:21 AM CERAMIC WORKER Plan of Treatment Not on file Goals Goal Patient Goal Type Associated Problems Recent Progress Patient-Stated? Author Establish Regular Follow-Ups with PCP Care Plan HbA1C Not In Goal No Radha Wong RN Get HbA1C Level in Goal Care [...] Optimize Self-Care Behaviors No Radha Wong RN Procedures Procedure Name Priority Date/Time Associated Diagnosis Comments ALBUMIN RANDOM URINE QUANTITATIVE Routine 11/04/2022 4:39 PM CERAMIC WORKER Type 1 diabetes mellitus without complication (H) HEMOGLOBIN A1C Routine 11/04/2022 4:14 PM CERAMIC WORKER Type 1 diabetes mellitus without complication (H) BASIC METABOLIC PANEL Routine 08/07/2022 10:50 AM CERAMIC WORKER Benign essential hypertension MA SCREENING BILATERAL W/ KONSTANTIN Routine 04/11/2022 11:30 AM CDT Visit for screening mammogram FOOT EXAM - HIM SCAN Routine 02/20/2022 EYE EXAM - HIM SCAN Routine 01/25/2022 LIPID PANEL (EXTERNAL RESULT) Routine 11/14/2021 8:11 AM CERAMIC WORKER COLONOSCOPY - HIM SCAN Routine 06/21/2020 DEXA - HIM SCAN Routine 03/06/2019 from Last 3 Months or Most Recently Relevant to Health Maintenance Results * Albumin Random Urine Quantitative with Creat Ratio (11/04/2022 4:39 PM CERAMIC WORKER) Pathologist [facility] Creatinine Urine mg/dL 31.3 mg/dL 11/05/2022 4:24 PM CERAMIC WORKER [facility] Comment:The reference ranges have not been established in urine creatinine. The results should be integrated into the clinical context for interpretation. Albumin Urine mg/L <12.0 mg/L 2022 4:24 PM CERAMIC WORKER [facility] Comment:The reference ranges have not been established in urine albumin. The results should be integrated into the clinical context for interpretation. Albumin Urine mg/g Cr 11/05/2022 4:24 PM CERAMIC WORKER [facility] Comment: Unable to calculate, urine [...] control, and institution of therapy with an nnlidbbxyak-ggdikfygcf-kkevkm (PHOEBE) inhibitor (if the patient can tolerate it). ?? Urine MID-STREAM URINE SPECIMEN / Unknown Non-blood Collection / Unknown 11/04/2022 4:39 PM CERAMIC WORKER 11/04/2022 4:39 PM CERAMIC WORKER Kathleen Marcelino MD LAB - URINE ORDER [facility]RA [facility] [address] [facility] [place] [address], [facility] [phone] * (ABNORMAL) Hemoglobin A1c (11/04/2022 4:14 PM CERAMIC WORKER) Hemoglobin A1C 7.0(H) 0.0 - 5.6 % 11/04/2022 4:38 PM CERAMIC WORKER [facility] Comment: Normal <5.7% Prediabetes 5.7-6.4% ?? Diabetes 6.5% or higher Note: Adopted from ADA consensus guidelines. Blood BLOOD SPECIMEN / Unknown Venipuncture / Unknown 11/04/2022 4:14 PM CERAMIC WORKER 11/04/2022 4:14 PM CERAMIC WORKER Kathleen Marcelino MD LAB - BLOOD ORDER ARA [facility] [address] [facility], [address] [place] [address], [facility] [phone] * (ABNORMAL) BASIC METABOLIC PANEL (08/07/2022 10:50 AM CERAMIC WORKER) Sodium 138 133 - 144 mmol/L 08/07/2022 7:03 PM CERAMIC WORKER [facility] Potassium 4.1 3.4 - 5.3 mmol/L 08/07/2022 7:03 PM CERAMIC WORKER [facility] Chloride 104 94 - 109 mmol/L 08/07/2022 7:03 PM CERAMIC WORKER [facility] Carbon Dioxide (CO2) 28 20 - 32 mmol/L 08/07/2022 7:03 PM CERAMIC WORKER [facility] Anion Gap 6 3 - 14 mmol/L 08/07/2022 7:03 PM CERAMIC WORKER [facility] Urea Nitrogen 14 7 - 30 mg/dL 08/07/2022 7:03 PM CERAMIC WORKER [facility] Creatinine 0.79 0.52 - 1.04 mg/dL 08/07/2022 7:03 PM CERAMIC WORKER [facility] Calcium 8.5 8.5 - 10.1 mg/dL 08/07/2022 7:03 PM CERAMIC WORKER [facility] Glucose 227(H) 70 - 99 mg/dL 08/07/2022 7:03 PM CERAMIC WORKER [facility] GFR Estimate 82 >60 mL/min/1.7 3m2 08/07/2022 7:03 PM CERAMIC WORKER [facility] Comment:Effective August 282020 eGFRcr in adults is calculated using the 2020 CKD-EPI creatinine equation which includes age and gender (Michelle et al., NEJM, DOI: 10.1056/YQZFxt5803705) Blood STRUCTURE OF RIGHT UPPER LIMB / Unknown Venipuncture / Unknown 08/07/2022 10:50 AM CERAMIC WORKER 08/07/2022 10:50 AM CERAMIC WORKER Stephanie Groves MD LAB - BLOOD ORDERABL [facility] [address] Lab (no room number, 1st floor of clinic) [place] [address] [phone] * MA Screen Bilateral w/Konstantin (04/11/2022 11:30 [...] to the patient. Screening Mammogram Selfreferral IMG AYDIN MOGRAPHY ORDERABLES * Foot Exam - HIM Scan (02/20/2022) Narrative Alyson Ott - 02/20/2022 See Care Everywhere-[facility] ([facility]) Provider Outside OTHER * Eye Exam - HIM Scan (01/25/2022) RETINOPATHY UNKNOWN Narrative Ricardo Ott - 01/25/2022 Jade Ang [facility] ??P Abstract Quality Initiatives Please update eye exam. She last had in [place] 01/2022 at [facility]. Patient Reported OTHER * Lipid Panel (External Result) (11/14/2021 8:11 AM CERAMIC WORKER) Cholesterol (External) 163 <200 mg/dL [place], [place] Triglycerides (External) 102 <150 mg/dL [place] HDL Cholesterol (External) 65 >=40 mg/dL [place] LDL Cholesterol (External) 78 <100 mg/dL [place] Non HDL Cholesterol (External) 98 <130 mg/dL [place] Blood 11/14/2021 8:11 AM CERAMIC WORKER Narrative [place] - 11/14/2021 8:11 AM CERAMIC WORKER Care Everywhere, [facility] ([facility]) Provider Outside LAB - HIM EXTERNAL R ESULT [place], [place] [address] [place] [address], [facility] [phone] * Colonoscopy - HIM Scan (06/21/2020) Narrative Rita Pisano - 06/21/2020 Flori Jovel MA ??P Abstract Quality Initiatives Please abstract the following data from this visit with this patient into the appropriate field in Epic: Other Tests found in the patient's chart through Chart Review/Care Everywhere: Colonoscopy done by this [facility] in [facility] on this date: 06/21/20 and Mammogram done by this [facility] in [facility] on this date: 03/18/21 Provider Outside PROCEDURES * DEXA - HIM Scan (03/06/2019) Anatomical Region Laterality Modality Other Narrative 03/06/2019 Care Everywhere, [facility] Provider Outside IMG DEXA ORDERABLES from Last 3 Months or Most Recently Relevant to Health Maintenance Additional Health Concerns Active Problems Noted Date Diagnosed Date HbA1C Not In Goal 05/25/2022 Diabetes Self-Management Edu cation Needed to Optimize Self-Care Behaviors 05/25/2022 Care Teams Derrick Boat Runner Relationship Specialty [place] [address] [place] [address] PCP - General Family Medicine 04/15/22 [place] [address] [place] [address] Assigned PCP 03/12/22 Radha Wong, RN Tinning Machine Set Up Operator Diabetes Education 05/25/22 Reed Flores DO [address] [place] [id number] Assigned Gastroenterology Provider 06/27/22
--- OUTSIDE RECORDS SUMMARY | 2024-03-06 09:41 | XMS_ITS | Encounter Summary ---
Author Organization [facility] Address [address] [place] [address] Care Team Providers Care Utility Bag Assembler Name Role Phone Stephanie Groves MD Primary Care Provider Stephanie Groves MD Unavailable Radha Wong RN Unavailable [phone] Jade Ang [facility] Unavailable [phone] Reed Flores DO Unavailable Ita Tillman [facility] Unavailable [phone] Reason for Visit * Reason Onset Date Comments Refill Request 11/26/2022 Encounter Details Date Type Department Care Team (Late st Contact Info) Description 11/26/2022 MyC Refill [address] [phone] [place] [id number] [place] [address] Refill Request Social History Tobacco Use Types Packs/Day Years [...] on file Sexual Orientation Not on file COVID-19 Exposure Response Date Recorded In the last 10 days, have yo u been in contact with someone who was confirmed or suspected to have Coronavirus/COVID-19? No / Unsure 11/04/2022 3:28 PM FURNITURE CLEANER documented as of this encounter Miscellaneous Notes * Telephone Encounter - Meron Baldwin RN - 11/26/2022 11:25 AM CST Routing refill request to provider for review/approval because: Labs not current: ldl Medication is reported/historical Meron Norris RN, BSN ITURE CLEANER documented in this encounter Plan of Treatment Not on [...] Optimize Self-Care Behaviors No Radha Wong RN Problem Solving - know how to [...] Self-Care Behaviors No Baeyen, Radha A, RN documented as of this encounter Visit Diagnoses Diagnosis Hyperlipidemia LDL goal <100- Primary Other and unspecified hyperlipidemia documented in this encounter Additional Health Concerns Active Problems Noted Date Diagnosed Date HbA1C Not In Goal 05/25/2022 Diabetes Self-Management Edu cation Needed to Optimize Self-Care Behaviors 05/25/2022 Assessment Noted Time PHQ-9 Depression Total Score: 0 04/15/20 11:18 AM CDT documented as of this encounter Care Teams Utility Bag Assembler Relationship Specialty [place] [address] [place] [address] PCP - General Family Medicine 04/15/22 [place] [address] [place] [address] Assigned PCP 03/12/22 Radha Wong RN Polytechnic Registrar Diabetes Education 05/25/22 Jade Ang [facility] [address] [place], [place] [id number] Assigned MTM Pharmacist 06/24/22 Reed Flores DO [address] [place], [place] [address]135 Assigned Gastroenterology Provider 06/27/22 Ita Tillman [facility] [address] [place] [address] Pharmacist Pharmacist 06/07/23 07/18/23 documented as of this encounter
--- OUTSIDE RECORDS SUMMARY | 2024-03-06 09:41 | XMS_ITS | Encounter Summary ---
Author Organization [facility] Address [address] [place] [address] Care Team Providers Care Technical Business Systems Analyst Name Role Phone Clinician, Not Found MD Primary Care Provider Un available Reason for Visit * Reason Comments DIABETES EDUCATION Encounter Details Date Type Department Care Team (Late st Contact Info) Description 02/23/2024 2:15 PM CDT Diabetes Ed [facility] Education Special[facility] [address] [facility] [place] [address] Margi Lucas RDN, DOV, CDCES [address] [place] [address] Type 1 diabetes mellitus without complication (HRC) (Primary Dx) Social History Tobacco Use Types Packs/Day Years Used Date Smoking Tobacco: Former Cigarettes Alcohol Use Standard Drinks/Week Comments Yes 0 (1 standard drink = 0.6 oz pur e alcohol) Sex and Gender Information Value Date Recorded Sex Assigned at Not on file Gender Identity Not on file Sexual Orientation Not on file documented as of this encounter Patient Instructions * Patient Instructions* Margi Lucas RDN, DOV, CDCES - 02/23/2024 2:15 PM CDT Adjusted 12-3am to have lower basal 0.7 instead of 0.75. Adjusted 5pm-12am to have lower basal 0.7. All other settings are the same. Call Dexcom to reset your Clarity username and password. If based on Dexcom Clarity, you are no longer above 70% Time in Range, you should set up follow up. You can reach our Diabetes Education team at phone [phone] or by sending a message via your [employer]ree account. documented in this encounter Progress Notes * Margi Lucas RDN, DOV, MONSE - 02/23/2024 2:15 PM CDT Subjective: What is the most important concern you want to discuss today? -Son has had T1D. He helps me with some stuff. 02/23/2024 Dexcom wouldn't pair x 1. I called Dexcom. I have been low a lot. I forgot to take it off Exercise Mode for 3-5 days, and I didn't have as many lows then. Does that mean my basals are too high? Concerns With: No concerns but no glucose data today Objective: There were no vitals taken for this visit. 10/07/23 : 151 lb 6 oz (68.7 kg) 02/23/2024 Unable to access Tandem data due to pt's phone being disconnected from pallavi. Reconnected today, but data did not load during visit. Hemoglobin A1C Date Value Ref Range Status 09/30/2023 7.9 (H) <=5.6 % Final T1D/OLGA since age 50, about 18 years now Assessment and Plan: 02/23/2024 Diabetes Care and Education office visit -Tandem with Control IQ and G7 CGM -Interim history: 01/17 Endo - CGM alert going off at 80; changed to 70 - TIR 72%, Very High 7%, Low1.4%. 01/23 PA approved for G7 -Able to open tconnect pallavi and pair with pump. No information except prior to January 18 available during visit. Information loading to the cloud in the future. -Unable to open Dexcom Clarity pallavi on pt's phone Unrecognized Username or Password. Unable to share Clarity with clinic. No glucose data today. -Pt reported frequent lows overnight (1-3am) and sometimes before dinner (around 7pm). Based on pt report, adjusted basals: Current Personal Profile Rates Time, Basal, ICR, Correct, Glucose Target: 1200 0.5 8 50 130 Adjusted 12-3am to have lower basal 0.7 and 5pm-12am to have lower basal 0.7. All other settings are the same. -Pt has been using Exercise Mode, but sometimes forgets to take pump out of Exercise Mode. She realized by doing this that she had fewer low glucose levels. Discussed situations where Exercise Mode could be used including when drinking alcohol to have a higher Target Glucose and prevent hypoglycemia. -Encouraged pt to make a follow up if her Clarity pallavi shows less than 70% Time in Range for 14 daysor 30 days. Plan: Adjusted 12-3am to have lower basal 0.7 instead of 0.75. Adjusted 5pm-12am to have lower basal 0.7. All other settings are the same. Call Locally to reset your Clarity username and password. If based on Dexcom Clarity, you are no longer above 70% Time in Range, you should set up follow up. Total Time Spent with patient: 44 min This visit was conducted as a: Office Visit Education content taught can be found in the diabetes education smartform. documented in this encounter Plan of Treatment Upcoming Encounters Date Type Department Care Team (Late st Contact Info) Description 07/25/2024 11:15 AM CDT Appointment Specialty Center [address] [facility] [address] [place] [address]. [place] [address] Edinson Lanier MD [address] [place] [address] [id number] documented as of this encounter Visit Diagnoses Diagnosis Type 1 diabetes mellitus without complication (HRC)- Primary Type I (juvenile type) diabetes mellitus without mention of complication, not stated as uncontrolled documented in this encounter Care Teams Technical Business Systems Analyst Relationship Specialty Start Date End Date Clinician, Not Found, [place] [address] PCP - General 09/29/23 documented as of this encounter
--- OUTSIDE RECORDS SUMMARY | 2024-03-06 09:41 | XMS_ITS | Encounter Summary ---
Author Organization [facility] Address [address] [place] [address] Care Team Providers Care Clinical Resource Manager Name Role Phone Jade Ang [facility] Unavailable [phone] Stephanie Groves MD Primary Care Provider Stephanie Groves MD Unavailable Radha Wong RN Unavailable [phone] Jade Ang [facility] Unavailable [phone] Reed Flores DO Unavailable Ita Tillman [facility] Unavailable [phone] Encounter Details Date Type Department Care Team (Late st Contact Info) Description 09/17/2022 MyC Medical Advice [facility] OR [address] [place] [address] Lian Byrd, PAULO Social History Tobacco Use Types Packs/Day Years [...] to Optimize Self-Care Behaviors Radha Bolaños RN documented as of this encounter Visit Diagnoses Not on filedocumented in this encounter Additional Health Concerns Active Problems Noted Date Diagnosed Date HbA1C Not In Goal 05/25/2022 Diabetes Self-Management Edu cation Needed to Optimize Self-Care Behaviors 05/25/2022 Assessment Noted Time PHQ-9 Depression Total Score: 0 04/15/20 11:18 AM CDT documented as of this encounter Care Teams Clinical Resource Manager Relationship Specialty [place] [address] [place] [address] PCP - General Family Medicine 04/15/22 Jade Ang [facility] [address] [place] [address] Pharmacist Pharmacist 04/15/22 10/14/22 [place] [address] [place] [address] Assigned PCP 03/12/22 Radha Wong, RN Quality Management Nurse Diabetes Education 05/25/22 Jade Ang [facility] [address] [place] [address] Assigned MTM Pharmacist 06/24/22 Reed Flores DO [address] [place], [place] [id number] Assigned Gastroenterology Provider 06/27/22 Ita Tillman, [facility] [address] [place] [address] Pharmacist Pharmacist 06/07/23 07/18/23 documented as of this encounter
--- OUTSIDE RECORDS SUMMARY | 2024-03-06 09:41 | XMS_ITS | Encounter Summary ---
Author Organization [facility] Address [address] [place] [address] Care Team Providers Care Button Decorating Machine Operator Name Role Phone Stephanie Groves MD Primary Care Provider Stephanie Groves MD Unavailable Radha Wong RN Unavailable Jade Ang [facility] Unavailable Reed Flores DO Unavailable Ita Tillman [facility] Unavailable [phone] Encounter Details Date Type Department Care Team (Late st Contact Info) Description 11/26/2022 MyC Medical Advice [facility] [id number] [place] [address] [place] [address] [place] [address] Post-menopausal Social History Tobacco Use Types Packs/Day Years [...] Coronavirus/COVID-19? No / Unsure 11/04/2022 3:28 PM BENDING MACHINE SET UP OPERATOR documented as of this encounter Miscellaneous Notes * Telephone Encounter - Meron Baldwin RN - 11/26/2022 9:44 AM CST Please see [employer] message from patient Meron Norris RN, BSN ING MACHINE SET UP OPERATOR documented in this encounter Plan of Treatment [...] as of this encounter Visit Diagnoses Diagnosis Post-menopausal Asymptomatic postmenopausal status (age-related) (natural) documented in this encounter Additional Health Concerns Active Problems Noted Date Diagnosed Date HbA1C Not In Goal 05/25/2022 Diabetes Self-Management Edu cation Needed to Optimize Self-Care Behaviors 05/25/2022 Assessment Noted Time PHQ-9 Depression Total Score: 0 04/15/20 11:18 AM CDT documented as of this encounter Care Teams Button Decorating Machine Operator Relationship Specialty Start [place] [address] [place] [address] PCP - General Family Medicine 04/15/22 [place] [address] [place] [address] Assigned PCP 03/12/22 Radha Wong RN Emergency Dept Tech Diabetes Education 05/25/22 Jade Ang [facility] [address] [place] [address] Assigned MTM Pharmacist 06/24/22 Reed Flores DO [address] [place] [address] Assigned Gastroenterology Provider 06/27/22 Ita Tillman [facility] [address] [place] [id number] Pharmacist Pharmacist 06/07/23 07/18/23 documented as of this encounter
--- OUTSIDE RECORDS SUMMARY | 2024-03-06 09:41 | XMS_ITS | Encounter Summary ---
Author Organization [facility] Address [address] [place] [address] Care Team Providers Care Moss Picker Name Role Phone Clinician, Not Found Primary Care Provider Un available Encounter Details Date Type Department Care Team (Late st Contact Info) Description 01/07/2024 E-Visit Specialty Center [facility] [address] [place] [address]. [place] [address] [place] [address] Social History Tobacco Use Types Packs/Day Years Used Date Smoking Tobacco: Former Cigarettes Sex and Gender Information Value Date Recorded Sex Assigned at Not on file Gender Identity Not on file Sexual Orientation Not on file documented as of this encounter Plan of Treatment Upcoming Encounters Date Type Department Care Team (Late st Contact Info) Description 07/25/2024 11:15 AM CDT Appointment [place] [facility] [address] [facility] [address] [place] [address]. [place] [address] Edinson Lanier MD [address] [place] [address] documented as of this encounter Visit Diagnoses Not on filedocumented in this encounter Care Teams Moss Picker Relationship Specialty Start Date End Date Clinician, Not Found, [place] [address] PCP - General 09/29/23 documented as of this encounter
--- OUTSIDE RECORDS SUMMARY | 2024-03-06 09:41 | XMS_ITS | Encounter Summary ---
Author Organization [facility] Address [address] [address] Care Team Providers Care Rail Loader Name Role Phone Clinician, Not Found MD Primary Care Provider Un available Reason for Visit * Reason Comments DIABETES EDUCATION * Consult/Transfer Care (Routine) - New Request Specialty Diagnoses / Procedures Referred By Contmessi t Referred To Contact Diagnoses Type 1 diabetes mellitus without complication (HRC) Edinson Lanier MD [address] [place] [address] Referral ID Status Reason Start Date Expiration Date V isits Requested Visits Authorized [id number] New Request 11/03/2023 02/01/2025 1 1 Encounter Details Date Type Department Care Team (Late st Contact Info) Description 01/05/2024 9:45 AM CDT Diabetes Ed [facility] Diabetes Education Specialty [facility] [address] [facility] [place] [address] Margi Lucas RDN, DOV, CDCES [address] [place] [address] Type 1 diabetes mellitus without complication (HRC) (Primary Dx) Social History Tobacco Use Types Packs/Day Years Used Date Smoking Tobacco: Former Cigarettes Sex and Gender Information Value Date Recorded Sex Assigned at Not on file Gender Identity Not on file Sexual Orientation Not on file documented as of this encounter Patient Instructions * Patient Instructions* Margi Lucas RDN, DOV, CDCES - 01/05/2024 9:45 AM CDT [employer] G7 CGM System - you set up a new password for Dexcom today (see your book) Supplies: G7 sensors and G7 director religious education/[employer] G7 and [employer]ond[employer] smart phone apps -The sensor needs to be changed every 10 days. You will receive a pack of 3 applicators with sensors each month. -Call tech support if you are having issues with the sensor adhesive staying on. -Every box of G7 sensors has instructions on how to insert. Use the green piece of adhesive every time to keep it in Watch online tutorials at [employer]/tutorials Watch training videos at [employer]/training-videos Support is available at the following contact numbers: Technical Support Available 19/04 for questions about product troubleshooting *First try using your Dexcom G7 username and password to get into your Clarity pallavi. If that fails, call [employer]. Call to reset Clarity pallavi username and password to match your DexPainting With A Twist G7. [employer] CARE CGM training and guidance from a team of certified diabetes educators If you would like to request overpatches (no cost) or need to submit a product support request (such as sensor replacement), you can do this through the website at [email or web address] With A Twist, click on Support, click on Contact Us, and scroll down to the links under Global Technical Support. We reconnected to T:Connect /[employer]'s pallavi but it is not sharing. This is something we can work on in follow up. We turned ON Control IQ. Trust your Control IQ to help with lows and help with highs. You can reach our Diabetes Education team at phone [phone] or by sending a message via your ADIKTIVO account. documented in this encounter Progress Notes * Margi Lucas RDN, DOV, MONSE - 01/05/2024 9:45 AM CDT Subjective: What is the most important concern you want to discuss today? Frustrated with G6 I am really bad with technology. Has gotten Tandem update to get G7 -With my pump, I changed the site before bed. Within 1 night, I went in ketoacidosis 1 year ago January. -Son has had T1D. He helps me with some stuff. Concerns With: Pt states I am really bad at technology. New to G7 New to Control IQ Objective: There were no vitals taken for this visit. 10/07/23 : 151 lb 6 oz (68.7 kg) 01/05/2024 Unable to access Tandem data due to pt's phone being disconnected from pallavi Hemoglobin A1C Date Value Ref Range Status 09/30/2023 7.9 (H) <=5.6 % Final T1D/OLGA since age 50, about 18 years now Assessment and Plan: 01/05/2024 Diabetes Care and Education office visit -on Tandem in manual/no Control IQ -11/03 ref by praful Raphael to learn about G7 with tslim pump - 11/15 Lmtc at cell/# regarding scheduling. Patient did not schedule from Diabetes Referral. 10/07 last visit with praful: She stopped using CGM about 6 months ago as she was frustrated when CGM was not working. She is using tandemmanually. Rates Time, Basal, ICR, Correct, Glucose Target: 1200 0.5 8 50 130 -Pt is here to get Dexcom G7 on her tandem pump. She is not using Control IQ because of the tech issues with G6 CGM. Patient seen today for both DSME/T and Personal CGM- Start-up Training. Discussed the difference between blood glucose and interstitial fluid glucose. Patient understands that readings can vary as much as 20% and to always confirm readings with a finger stick value. Patient demonstrated how to set various CGM/sensor settings in the device. Patient demonstrated how to insert the CGM/sensor and attached the transmitter. Instructed and demonstrated how to check for proper connection. Discussed and practiced the process of clearing alarms. Patient understands how to download CGM/sensor reports and the importance of bringing CGM director religious education or smartphone to all appointments. Scheduled for follow up. Plan: *First try using your Dexcom G7 username and password to get into your Clarity pallavi. If that fails, call Dexcom. Call to reset Clarity pallavi username and password to match your Dexcom G7. We reconnected to T:Connect /Tandem's pallavi but it is not sharing. This is something we can work on in follow up. We turned ON Control IQ. Trust your Control IQ to help with lows and help with highs. Total Time Spent with patient: 70 min Time spent on on DSME/T: 35 min and the rest of time spent on Personal CGM Training ([id number]) This visit was conducted as a: Office Visit Education content taught can be found in the diabetes education smartform. documented in this encounter Plan of Treatment Upcoming Encounters Date Type Department Care Team (Late st Contact Info) Description 07/25/2024 11:15 AM CDT Appointment Specialty Center [address] [place] [address]. [place], [place] [id number] Edinson Lanier MD [address] [place] [address] Scheduled Referrals Name Type Priority Associated Diagnoses Orde r Schedule Diabetes Education and MNT Referral Routine Type 1 diabetes mellitus without complication (HRC) Ordered: 11/03/2023 documented as of this encounter Visit Diagnoses Diagnosis Type 1 diabetes mellitus without complication (HRC)- Primary Type I (juvenile type) diabetes mellitus without mention of complication, not stated as uncontrolled documented in this encounter Care Teams Rail Loader Relationship Specialty Start Date End Date Clinician, Not Found, [place] [address] PCP - General 09/29/23 documented as of this encounter
--- OUTSIDE RECORDS SUMMARY | 2024-03-06 09:41 | XMS_ITS | Encounter Summary ---
Author Organization [facility] Address [address] [place] [address] Care Team Providers Care Nuclear Reactor Technician Name Role Phone Jade Ang [facility] Unavailable [phone] Stephanie Groves MD Primary Care Provider Stephanie Groves MD Unavailable Radha Wong RN Unavailable [phone] Jade Ang [facility] Unavailable [phone] Reed Flores DO Unavailable Ita Tillman [facility] Unavailable Encounter Details Date Type Department Care Team (Late st Contact Info) Description 07/03/2022 MyC Medical Advice [address] [address] Radha Wong, RN Social History Tobacco Use Types Packs/Day Years Used Date Smoking Tobacco: Former Cigarettes Q uit: 04/15/2002 Other Smokeless Tobacco: Current Chew Comments:chews nicorette gum every day Alcohol Use Standard Drinks/Week Comments Yes 0 (1 standard drink = 0.6 oz pur e alcohol) daily PHQ-2 Answer Date Recorded PHQ-2 Score 0 06/22/2022 Sex and Gender Information Value Date Recorded Sex Assigned at Not on file Gender Identity Not on file Sexual Orientation Not on file COVID-19 Exposure Response Date Recorded In the last 10 days, have yo u been in contact with someone who was confirmed or suspected to have Coronavirus/COVID-19? No / Unsure 07/01/2022 10:31 AM CDT documented as of this encounter Plan of Treatment Not on file documented as of this encounter Goals Goal Patient Goal Type Associated Problems Recent Progress Patient-Stated? Author Establish Regular Follow-Ups with PCP Care Plan HbA1C Not In Goal Radha Bolaños RN Get HbA1C Level in Goal Care Plan HbA1C Not In Goal No Radha Wong RN Healthy Eating - follow a healthy [...] documented as of this encounter Care Teams Nuclear Reactor Technician Relationship Specialty [place] [address] [place] [address] PCP - General Family Medicine 04/15/22 Jade Ang, [facility] [address] [place] [address] Pharmacist Pharmacist 04/15/22 10/14/22 [place] [address] [place] [address] Assigned PCP 03/12/22 Radha Wong RN Administrative Representative Diabetes Education 05/25/22 Jade Ang, [facility] [address] [place] [address] Assigned MTM Pharmacist 06/24/22 Reed Flores DO [address] [place], [place] [address] Assigned Gastroenterology Provider 06/27/22 Ita Tillman [facility] [address] [place] [address] Pharmacist Pharmacist 06/07/23 07/18/23 documented as of this encounter
--- OUTSIDE RECORDS SUMMARY | 2024-03-06 09:41 | XMS_ITS ---
Care Plan Created on: March 06, 2024 Akua Bryant : 1955 Sex: Female Author Organization [facility] Address [address] [place] [address] Care Team Providers Care Building Supplies Salesperson Retail Name Role Phone Stephanie Groves MD Primary Care Provider [phone] Stephanie Groves MD Unavailable Radha Wong RN Unavailable [phone] Reed Flores DO Unavailable Active Problems Problem Noted Date Diagnosed Date Type 1 diabetes mellitus without complication Diabetes mellitus, type 2 08/07/2022 Esophageal dysmotility 06/23/2022 Belching 06/23/2022 Resolved Problems Problem Noted Date Diagnosed Date Resolved Date Uncontrolled type 1 diabetes mellitus with hyperglycemia 08/07/2022 08/07/2022 Additional Health Concerns Active Problems Noted Date Diagnosed Date HbA1C Not In Goal 05/25/2022 Diabetes Self-Management Edu cation Needed to Optimize Self-Care Behaviors 05/25/2022 Goals Goal Patient Goal Type Associated Problems [...] Optimize Self-Care Behaviors No Radha Wong RN Being Active - get regular physical activity, working up to at least 150 minutes per week Care Plan Diabetes Self-Management Education Needed to Optimize Self-Care Behaviors No Radha Wong RN Monitoring - monitor glucose and ketones [...] to Optimize Self-Care Behaviors Radha Bolaños RN Interventions Intervention Entry Date Outcome Provide education on when to seek professional counseling 05/25/2022 Discuss methods for coping with stress 05/25/2022 Provide education on tobacco cessation 05/25/2022 Provide education on recommendations for heart health - lipid levels and goals, blood pressure and goals, and aspirin therapy, if indicated 05/25/2022 Provide education on recommended care for dental, eye and foot health 05/25/2022 Provide education on major complications of diabetes, prevention, early diagnostic measures and treatment of complications 05/25/2022 Provide education on how to care for diabetes on sick days 05/25/2022 Provide education on safe travel with diabetes 05/25/2022 Provide education on frequency and refill details of medications 05/25/2022 Provide education on insulin and injectable diabetes medications, including administration, storage, site selection and rotation for injection sites 05/25/2022 Provide education on ketone monitoring (when to monitor, frequency, etc.) 05/25/2022 Explore community resources including walking groups, assistance programs, and home videos 05/25/2022 Develop physical activity plan with patient 05/25/2022 Discuss barriers to physical activity with patient 05/25/2022 Provide education on relationship of activity to glucose and precautions to take if at risk for low glucose 05/25/2022 Develop individualized healthy eating plan with patient 05/25/2022 Provide education on eating out 05/25/2022 Provide education on heart healthy eating 05/25/2022 Provide education on weight management 05/25/2022 Provide education on managing carbohydrate intake (carbohydrate counting, plate planning method, etc.) 05/25/2022 Provide education on portion control and consistency in amount, composition and timing of food intake 05/25/2022 Discuss diabetes treatment plan with patient 05/25/2022 Refer patient to appropriate extended care long line teamster, as needed (Medication Therapy Management, Behavioral Health, Physical Therapy, etc.) 05/25/2022 Educate patient on benefits of regular glucose monitoring 05/25/2022 Educate patient on diabetes education self-management topics 05/25/2022 Discuss schedule for PCP visits with patient 05/25/2022 Discuss with PCP the recommended timing for patient's next follow up visit(s) 05/25/2022 Related Goals and Interventions Goal Associated Intervent ions Establish Regular Follow-Ups with PCP Angela lemus schedule for PCP visits with patient; Discuss with PCP the recommended timing for patient's next follow up visit(s) Get HbA1C Level in Goal Discuss diabetes treatment plan with patient; Refer patient to appropriate extended care long line teamster, as needed (Medication Therapy Management, Behavioral Health, Physical Therapy, etc.); Educate patient on benefits of regular glucose monitoring; Educate patient on diabetes education self-management topics Healthy Eating - follow a he althy eating pattern for diabetes Develop individualized healthy eating pl an with patient; Provide education on eating out; Provide education on heart healthy eating; Provide education on weight management; Provide education on managing carbohydrate intake (carbohydrate counting, plate planning method, etc.); Provide education on portion control and consistency in amount, composition and timing of food intake Being Active - get regular p hysical activity, working up to at least 150 minutes per week Explore community resources including walking groups, assistance programs, and home videos; Develop physical activity plan with patient; Discuss barriers to physical activity with patient; Provide education on relationship of activity to glucose and precautions to take if at risk for low glucose Monitoring - monitor glucose and ketones as directed Provide education on ketone monitoring (when to monitor, frequency, etc.) Taking Medication - patient is consistently taking medications as directed Provide education on frequency and refil l details of medications; Provide education on insulin and injectable diabetes medications, including administration, storage, site selection and rotation for injection sites Problem Solving - know how t o prevent and manage short-term diabetes complications Provide education on how to care for diabetes on sick days; Provide education on safe travel with diabetes Reducing Risks - know how to prevent and treat long-term diabetes complications Provide education on tobacco cessation; Provide education on recommendations for heart health - lipid levels and goals, blood pressure and goals, and aspirin therapy, if indicated; Provide education on recommended care for dental, eye and foot health; Provide education on major complications of diabetes, prevention, early diagnostic measures and treatment of complications Healthy Coping - use availab le resources to cope with the challenges of managing diabetes Provide education on when to seek professional counseling; Discuss methods for coping with stress
--- OUTSIDE RECORDS SUMMARY | 2024-03-06 09:41 | XMS_ITS | Clinical Summary ---
Author Organization [facility] Address [address] [place] [address] Care Team Providers Care Stewarding Supervisor Name Role Phone Clinician, Not Found MD Primary Care Provider Un available Source Comments You are receiving this document as you are listed as the primary care provider,follow-up provider, or the patient has been referred to you for consultation.This is in compliance with the Medicare and[facility] EHR Incentive Program,which states Providers who transition their patient to another setting of careor provider of care or refers their patient to another provider of care shouldprovide summary care record for each transition of care or referral. [employer] Allergies Active Allergy Reactions Criticality Noted Date Comments Penicillins Anaphylaxis High 04/06/2022 Sulfa Antibiotics Hives High 02/16/2013 Medications Medication Sig Dispensed Refills Start Date End Date Status aspirin EC 81 MG enteric coated tablet Take 1 Tablet (81 mg) by mouth. Active atorvastatin (LIPITOR) 20 MG tablet Take 1 Tablet (20 mg) by mouth daily. 06/17/2022 Active buPROPion (WELLBUTRIN XL) 300 MG 24 hour release tablet Take 1 Tablet (300 mg) by mouth daily. 06/22/2022 Active PREMPRO 0.45-1.5 MG tablet Take 1 Tablet by mouth daily. 06/22/2022 Active desoximetasone (TOPICORT) 0.25 % cream Apply 1 Application topically. Active NOVOLOG 100 UNIT/ML injection (vial) Inject subcutaneously. 05/14/2022 Active nicotine (NICORETTE) [address] 1 Each (2 mg) between cheek and gum. Active sertraline (ZOLOFT) 50 MG tablet Take 1 Tablet (50 mg) by mouth daily. 08/03/2022 Active valsartan (DIOVAN) 80 MG tablet Take 1 Tablet (80 mg) by mouth daily. 04/28/2022 Active Multiple Vitamin (THERA) Take 1 Tablet by mouth daily. Active Calcium Carb-Cholecalcifero l (OYSTER SHELL CALCIUM W/D) 500-5 MG-MCG TABS Take 1 Tablet by mouth daily. Active ibuprofen (MOTRIN) 200 MG tablet Take 1-2 Tablets (200-400 mg) by mouth once as needed for Pain. Active loratadine (CLARITIN) 10 MG tablet Take 1 Tablet (10 mg) by mouth once as needed. Active amLODIPine (NORVASC) 5 MG tablet Take 1 Tablet (5 mg) by mouth daily. 90 Tablet 3 10/07/2023 10/06/2024 Active Dexcom G7 Sensor continuous blood glucose deviceIndications:T ype 1 diabetes mellitus without complication (HRC) Use for continuous glucose monitoring. Change sensor every 10 days. 9 Each 3 01/18/2024 Active blood glucose (FREESTYLE LITE) test stripIndications:Ty pe 1 diabetes mellitus without complication (HRC) Use to test 8 times daily. 700 Strip 3 01/18/2024 Active Lancet Devices (LANCING DEVICE)Indications: Type 1 diabetes mellitus without complication (HRC) Using for checking glucose 1 Each 3 01/18/2024 Active Active Problems Problem Noted Date Diagnosed Date Mixed hyperlipidemia 08/18/2022 Esophageal dysmotility 06/23/2022 Abdominal wall pain in left lower quadrant 11/14 Essential hypertension 11/11/2020 Endometrial polyp 10/10/2020 PMB (postmenopausal bleeding) 10/10/2020 Rectal polyp 06/21/2020 Status post left rotator cuff repair 07/10/2019 Other shoulder lesions, left shoulder 07/07/2019 Type 1 diabetes mellitus without complication Recurrent major depressive disorder, in remissio n 12/19/2008 Encounters Date Type Department Care Team Description 02/23/2024 2:15 PM CDT Diabetes Ed [facility] [address] [address] Margi Lucas, SILVANA, LD, CDCES Type 1 diabetes mellitus without complication (HRC) (Primary Dx) 01/24/2024 Telephone [facility] [address] [place] [address]. [place] [address] Edinson Lanier MD Prior Authorization For Medication (Dexcom G7 Sensor continuous blood glucose device) 01/18/2024 8:45 AM CDT Office Visit [facility] [address] [place] [address]. [place] [address] Edinson Lanier MD Type 1 diabetes mellitus without complication (HRC) (Primary Dx); Encounter for long-term (current) use of medications 01/13/2024 9:10 AM CDT Lab Visit [facility] [address] [place] [address] Type 1 diabetes mellitus without complication (HRC); Encounter for long-term (current) use of medications 01/07/2024 E-Visit [facility] [address] [facility] [place] [address]. [place] [address] Mychart, Generic Provider 01/05/2024 9:45 AM CDT Diabetes Ed [facility] [address] [place] [address] Margi Lucas, ALEJANDRON, LD, CDCES Type 1 diabetes mellitus without complication (HRC) (Primary Dx) from Last 3 Months Family History Medical History Relation Name Comments Cataract Father Diabetes Father Glaucoma Father Macular Degeneration Father Diabetes Son Amblyopia/Strabismus Negative Family History Retinal Detachment Negative Family History Relation Name Status Comments Father Son Alive Social History Tobacco Use Types Packs/Day Years Used Date Smoking Tobacco: Former Cigarettes Tobacco Cessation:Counseling Given: Not Answered Alcohol Use Standard Drinks/Week Comments Yes 0 (1 standard drink = 0.6 oz pur e alcohol) Sex and Gender Information Value Date Recorded Sex Assigned at Not on file Gender Identity Not on file Sexual Orientation Not on file Last Filed Vital Signs Vital Sign Reading Time Taken Comments Blood Pressure 106/73 01/18/2024 9:00 AM CDT Pulse 77 01/18/2024 9:00 AM CDT Temperature 36.9 ??C (98.4 ??F) 01/13/2023 11:50 AM C DT Respiratory Rate - - Oxygen Saturation 98% 01/13/2023 11:50 AM CDT Inhaled Oxygen Concentration - - Weight 68 kg (150 lb) 01/18/2024 9:00 AM CDT Height 157.5 cm (5' 2) 10/07/2023 10:20 AM MARKETING PRODUCTION SPECIALIST Body Mass Index 27.44 10/07/2023 10:20 AM MARKETING PRODUCTION SPECIALIST Plan of Treatment Upcoming Encounters Date Type Department Care Team (Late st Contact Info) Description 07/25/2024 11:15 AM CDT Appointment [facility] [address] [facility] [place] [address] Edinson Lanier MD [address] [place] [address] Health Maintenance Due Date Last Done Comments Colon Cancer Screening Plan Due 1955 Diabetes: Foot Exam 1955 Hep C Screening (Preventive Services) 1955 Medicare Annual Wellness Visit 1955 Dexa 02/25/2020 DTaP/Tdap/Td (3 - Tdap) 06/27/2022 06/27/20, 06/27/2012, 09/27/2005, Additional history exists Mammogram 04/11/2023 04/11/2022, 02/26, 03/13/2020, Additional history exists COVID-19 Vaccine ( season) 2023 04/06/2023, 08/08/2022, 02/10/2022, Additional history exists Diabetes: Eye Exam 12/11/2023 12/10/2022, 08/18/2022 Diabetes: HGBA1C 04/13/2024 01/13/2024, 12/2023, 04/06/2023, Additional history exists Diabetes: Creatinine 01/12/2025 01/13/2024 Diabetes: Urine Microalbumin 01/12/2025 01/13/2024 Diabetes: Lipid Panel 09/30/2028 09/30/2023 HepA Aged Out 07/29/2005 No longer eligi ble based on patient's age to complete this topic Zoster/Shingles Completed 02/16/2020, 11/23/2019 Pneumococcal 65+ Yrs Completed 08/07/2022, 11/07/2019, 08/11/2002 Influenza Completed 06/22/2023, 05/28, 08/14/2021, Additional history exists Cholesterol Discontinued 09/30/2023 HepB Aged Out No longer eligi ble based on patient's age to complete this topic Hib Aged Out No longer eligi ble based on patient's age to complete this topic IPV (Polio) Aged Out No longer eligi ble based on patient's age to complete this topic MCV4 Aged Out No longer eligi ble based on patient's age to complete this topic Procedures Procedure Name Priority Date/Time Associated Diagnosis Comments ALBUMIN/CREAT RATIO Routine 01/13/2024 9:24 AM CDT Type 1 diabetes mellitus without complication (HRC) BASIC METABOLIC PANEL Routine 01/13/2024 9:14 AM CDT Type 1 diabetes mellitus without complication (HRC) Encounter for long-term (current) use of medications HGB A1C Routine 01/13/2024 9:14 AM CDT Type 1 diabetes mellitus without complication (HRC) LIPID PANEL & DIRECT LDL (IF NEEDED) Routine 09/30/2023 7:10 AM MARKETING PRODUCTION SPECIALIST Type 1 diabetes mellitus without complication (HRC) VENITA (DIABETIC EYE EXAM) 12/10/2022 MM MAMMOGRAM SCREENING BILAT W 3D ASIF W CAD Routine 04/11/2022 11:30 AM CDT from Last 3 Months or Most Recently Relevant to Health Maintenance Results * Albumin/Creatinine Ratio,Random Urine (01/13/2024 9:24 AM CDT) Albumin/Creati nine Ratio, Urine, Random 9 <30 mg/g 01/13/2024 12:58 PM CDT [facility] Albumin, Urine, Random 5.4 mg/L 01/13/2024 12:58 PM CDT [facility] Creatinine, Urine, Random 59 >20 mg/dL mg/dL 01/13/2024 12:58 PM [facility] Urine Non-blood Collection / Unknown 01/13/2024 9:24 AM CDT 01/13/2024 9:24 AM CDT Edinson Lanier MD LAB_1 [facility] [address] [place] [address] * (ABNORMAL) Basic Metabolic Panel (01/13/2024 9:14 AM CDT) Sodium 138 136 - 145 mmol/L 01/13/2024 2:19 PM [facility] Potassium 4.5 3.5 - 5.1 mmol/L 01/13/2024 2:19 PM [facility] Chloride 104 98 - 109 mmol/L 01/13/2024 2:19 PM [facility] CO2 25 20 - 29 mmol/L 01/13/2024 2:19 PM [facility] Anion Gap 9 7 - 16 mmol/L 01/13/2024 2:19 PM [facility] Calcium 9.0 8.4 - 10.4 mg/dL 01/13/2024 2:19 PM [facility] BUN 12 7 - 26 mg/dL 01/13/2024 2:19 PM [facility] Creatinine 0.87 0.55 - 1.02 mg/dL 01/13/2024 2:19 PM [facility] Glucose 126(H) 70 - 100 mg/dL 01/13/2024 2:19 PM [facility] Comment:The given reference range is for the fasting state. Non-fasting reference range for glucose is 70 - 180 mg/dL. GFR, Estimated >60 >60 mL/min/1.7 3m2 01/13/2024 2:19 PM [facility] Hours Fasting 0.0 8 - 12 Hours 01/13/2024 2:19 PM [facility] Blood Venipuncture / Unknown 01/13/2024 9:14 AM CDT 01/13/2024 9:14 AM CDT Edinson Lanier MD LAB_1 Performing Organization Address [facility]/ZIP Co de Phone Number [facility] [address] [place] [address] * (ABNORMAL) Hgb A1C (01/13/2024 9:14 AM CDT) Hemoglobin A1C 7.6(H) <=5.6 % 01/13/2024 6:05 PM CDT [facility] Estimated Average Glucose (Calc) 171 < 117 mg/dL 01/13/2024 6:05 PM CDT [facility] Comment:Estimated average gl ucose (eAG) converts A1c into glucose units (mg/dL) and estimates average glucose over the past approximately 3 months. The eAG reference interval (<117 mg/dL) corresponds to an A1c of <5.7%. Blood Venipuncture / Unknown 01/13/2024 9:14 AM CDT 01/13/2024 9:14 AM CDT Narrative [facility] - 01/13/2024 6:05 PM CDT For patients not previously diagnosed with diabetes: 5.7-6.4%: Increased risk for diabetes 6.5% and greater: Diagnostic for diabetes For patients diagnosed with diabetes: <8.0%: Goal of therapy for ages 18-75 Clinicians may recommend a higher or lower goal for specific individuals. Edinson Lanier MD LAB_1 Performing Organization Address [facility] Co de Phone Number [facility] [id number] [place] [address] * Lipid Panel and Direct LDL(If Needed) (09/30/2023 7:10 AM MARKETING PRODUCTION SPECIALIST) Cholesterol 190 0 - 199 mg/dL 09/30/2023 10:12 AM [facility] Triglyceride 95 <=149 mg/dL 09/30/2023 10:12 AM [facility] HDL Cholesterol 71 >=40 mg/dL 10:12 AM [facility] LDL, Calculated 100 <130 mg/dL 10:12 AM [facility] Non HDL Chol, Calculated 119 <=159 mg/dL 09/30/2023 10:12 AM [facility] Cholesterol/HDL Ratio 2.7 <=5.0 09/30/2023 10:12 AM [facility] Hours Fasting 12.0 8 - 12 Hours 09/30/2023 10:12 AM [facility] Blood Venipuncture / Unknown 09/30/2023 7:10 AM MARKETING PRODUCTION SPECIALIST 09/30/2023 7:10 AM [facility] Edinson Lanier MD LAB_1 [facility] [address] [place] [address], [facility] [phone] [facility] [address] [place] [address], [facility] [phone] * VENITA (DIABETIC EYE EXAM) (12/10/2022) Interface Provider DUMMY/OTHER/AR from Last 3 Months or Most Recently Relevant to Health Maintenance Care Teams Stewarding Supervisor Relationship Specialty Start Date End Date Clinician, Not Found, [place] [address] PCP - General 09/29/23
== END 2024-03-06 09:36 | disposition home or self-care (01) ==
PROVIDERS: PCP Internal Medicine; Visit Provider Internal Medicine
DX: I10 Essential (primary) hypertension (principal); E11.9 Type 2 diabetes mellitus without complications; Z79.4 Long term (current) use of insulin; Z13.220 Encounter for screening for lipoid disorders
CPT/HCPCS: 80053; 80061; 82043; 82570